=== PATIENT | female | born 1955 | race Caucasian/White ===

== ENCOUNTER → 2018-01-10 20:43 | Outpatient (CLI) | payer BC, SELFPAY ==
[2018-01-10 20:49] LABS: Absolute Lymphocyte Count 1.85 X10^3/ul (0.83-4.51); Absolute Neutrophil Count 4.1 X10^3/uL (2.0-7.7); Basophil# 0.04 X10^3/uL; Basophil% 0.6 % (0-1); Eosinophil# 0.04 X10^3/uL; Eosinophils% 0.6 % (0-5); Hematocrit 39.1 % (37-47); Hemoglobin 13.8 g/dl (12.0-15.0); Lymphocyte # 1.85 X10^3/ul (4.0); Mean Corp Hgb Conc 35.3 g/gl (32-36); Mean Corpuscular Hgb 34.2 pg (27.0-32.0); Mean Corpuscular Volume 96.8 fL (81-99); Mean Platelet Vol. 8.9 fl (6.2-12.0); Monocyte# 0.82 X10^3/uL; Neutrophil # 4.08 X10^3/uL (2.7-7.7); Neutrophil % 59.7 % (47-70); Platelet Count 209 K/mm3 (150-450); RBC Distribution Width CV 12.3 % (11.6-14.6); RBC Distribution Width SD 43.3 fl (35.1-43.9); Red Blood Count 4.04 M/mm3 (4.2-5.4); White Blood Count 6.8 K/mm3 (4.4-11.0)
[2018-01-10 20:50] LABS: POSITIVE COUNT NO; POSITIVE DIFFERENTIAL NO; POSITIVE MORPHOLOGY NO
[2018-01-10 21:02] LABS: ALB/GLOB Ratio 0.8 RATIO (0.9-2.4); AST(SGOT) 37 U/L (15-37); Alanine Aminotransfer ALT/SGPT 26 U/L (13-56); Albumin, Serum 3.4 g/dL (3.2-5.0); Alkaline Phosphatase 117 U/L (45-117); Anion Gap 11 (5-15); BUN 6 mg/dL (7-18); BUN/Creat Ratio 8.2 RATIO (10-20); Calcium,Total 8.9 mg/dL (8.5-10.1); Chloride 94 mmol/L (98-107); Cholesterol 166 mg/dL (200); Creatinine, Serum 0.74 mg/dL (0.55-1.02); EST Glomerular Filtration Rate 85 mL/min (>60); Est Glom Filt Rate - Afr Amer 102 mL/min (>60); Globulin 4.2 g/dL (2.2-4.2); Glucose 93 mg/dL (74-106); High Density Lipoprotein 73 mg/dL; Potassium 3.3 mmol/L (3.5-5.1); Protein, Total 7.6 g/dL (6.4-8.2); Sodium Level 133 mmol/L (136-145); Triglycerides 148 mg/dL; Very Low Density Lipoprotein 30 mg/dL (5-40)
== END ==
PROVIDERS: Visit Provider Nurse Practitioner
DX: I10 Essential (primary) hypertension (principal); E78.5 Hyperlipidemia, unspecified
CPT/HCPCS: 80053; 80061; 85025

== ENCOUNTER → 2019-01-08 | Outpatient (CLI) | payer BC, SELFPAY ==
[2019-01-08 15:32] VITALS: BMI 21.2
[2019-01-08 21:43] LABS: Absolute Neutrophil Count 3.7 X10^3/uL (2.0-7.7); Basophil# 0.07 X10^3/uL; Basophil% 1.1 % (0-1); Eosinophil# 0.04 X10^3/uL; Eosinophils% 0.6 % (0-5); Hematocrit 42.4 % (37-47); Lymphocyte % 31.8 % (19-41); Mean Corp Hgb Conc 35.4 g/dL (32-36); Mean Corpuscular Hgb 34.8 pg (27.0-32.0); Mean Corpuscular Volume 98.4 fL (81-99); Mean Platelet Vol. 8.9 fl (6.2-12.0); Monocyte# 0.51 X10^3/uL; Monocyte% 8.1 % (0-10); NRBC Flagged by Analyzer 0 % (0-5); Neutrophil # 3.65 X10^3/uL (2.7-7.7); Neutrophil % 58.2 % (47-70); Platelet Count 186 K/mm3 (150-450); RBC Distribution Width CV 12.3 % (11.6-14.6); RBC Distribution Width SD 44.8 fl (35.1-43.9); Red Blood Count 4.31 M/mm3 (4.2-5.4); White Blood Count 6.3 K/mm3 (4.4-11.0)
[2019-01-08 21:54] LABS: ALB/GLOB Ratio 0.8 RATIO (0.9-2.4); AST(SGOT) 25 U/L (15-37); Alanine Aminotransfer ALT/SGPT 18 U/L (13-56); Albumin, Serum 3.5 g/dL (3.2-5.0); Alkaline Phosphatase 111 U/L (45-117); Anion Gap 8 (5-15); BUN 8 mg/dL (7-18); BUN/Creat Ratio 11.9 RATIO (10-20); Calcium,Total 9.1 mg/dL (8.5-10.1); Chloride 98 mmol/L (98-107); Cholesterol 155 mg/dL (200); Creatinine, Serum 0.67 mg/dL (0.55-1.02); EST Glomerular Filtration Rate 93 mL/min (>60); Est Glom Filt Rate - Afr Amer 113 mL/min (>60); Globulin 4.2 g/dL (2.2-4.2); Glucose 79 mg/dL (74-106); High Density Lipoprotein 60 mg/dL; Potassium 3.5 mmol/L (3.5-5.1); Protein, Total 7.7 g/dL (6.4-8.2); Sodium Level 130 mmol/L (136-145); Triglycerides 145 mg/dL; Very Low Density Lipoprotein 29 mg/dL (5-40)
== END | disposition home or self-care (01) ==
PROVIDERS: Referring Provider Nurse Practitioner; Visit Provider Nurse Practitioner
DX: I10 Essential (primary) hypertension (principal); E78.2 Mixed hyperlipidemia
CPT/HCPCS: 80053; 80061; 85025

== ENCOUNTER → 2019-12-15 | Outpatient (CLI) | payer MEDICARE, SELFPAY ==
[2019-01-08 15:32] VITALS: BMI 21.2
[2019-12-15 22:45] LABS: Absolute Lymphocyte Count 0.74 X10^3/uL (0.83-4.51); Absolute Neutrophil Count 4.8 X10^3/uL (2.0-7.7); Basophil# 0.03 X10^3/uL; Basophil% 0.5 % (0-1); Eosinophil# 0.01 X10^3/uL; Eosinophils% 0.2 % (0-5); Hematocrit 37.7 % (37-47); Hemoglobin 13.8 g/dL (12.0-15.0); Lymphocyte # 0.74 X10^3/ul (4.0); Lymphocyte % 11.6 % (19-41); Mean Corp Hgb Conc 36.6 g/dL (32-36); Mean Corpuscular Hgb 34.7 pg (27.0-32.0); Mean Corpuscular Volume 94.7 fL (81-99); Mean Platelet Vol. 9.6 fl (6.2-12.0); Monocyte# 0.75 X10^3/uL; Monocyte% 11.8 % (0-10); NRBC Flagged by Analyzer 0 % (0-5); Neutrophil # 4.82 X10^3/uL (2.7-7.7); Neutrophil % 75.7 % (47-70); Platelet Count 189 K/mm3 (150-450); RBC Distribution Width CV 11.8 % (11.6-14.6); RBC Distribution Width SD 40.9 fl (35.1-43.9); Red Blood Count 3.98 M/mm3 (4.2-5.4); White Blood Count 6.4 K/mm3 (4.4-11.0)
[2019-12-15 22:57] LABS: ALB/GLOB Ratio 0.9 RATIO (0.9-2.4); AST(SGOT) 37 U/L (15-37); Alanine Aminotransfer ALT/SGPT 22 U/L (13-56); Albumin, Serum 3.3 g/dL (3.2-5.0); Alkaline Phosphatase 82 U/L (45-117); Anion Gap 11 (5-15); BUN 27 mg/dL (7-18); BUN/Creat Ratio 15.2 RATIO (10-20); Calcium,Total 8.3 mg/dL (8.5-10.1); Chloride 78 mmol/L (98-107); Cholesterol 123 mg/dL (200); Creatinine, Serum 1.78 mg/dL (0.55-1.02); EST Glomerular Filtration Rate 30 mL/min (>60); Est Glom Filt Rate - Afr Amer 37 mL/min (>60); Globulin 3.7 g/dL (2.2-4.2); Glucose 121 mg/dL (74-106); High Density Lipoprotein 54 mg/dL; Potassium 2.6 mmol/L (3.5-5.1); Sodium Level 114 mmol/L (136-145); Triglycerides 160 mg/dL; Very Low Density Lipoprotein 32 mg/dL (5-40)
== END | disposition home or self-care (01) ==
PROVIDERS: Visit Provider Nurse Practitioner
DX: I10 Essential (primary) hypertension (principal); E78.5 Hyperlipidemia, unspecified
CPT/HCPCS: 80053; 80061; 85025

== ENCOUNTER 2019-12-16 13:08 | Inpatient (IN) | payer MEDICARE, SELFPAY ==
[2019-12-15 16:02] VITALS: BMI 20.2
[2019-12-16] VITALS (11 sets, daily range): BP systolic 126–180; BP diastolic 40–73; PULSE 58–72; RESP 15–19; TEMP 36.6–36.9; O2SAT 94–100; BMI 20.2
--- NOTE | 2019-12-16 13:28 | CT_ITS ---
STUDY: CT BRAIN WITHOUT CONTRAST REASON FOR EXAM: Female, 64 years old. PT STATED FALL RADIATION DOSAGE (If Supplied By Facility): CTDIvol = ( 44.99 ) mGy, DLP = ( 762.36 ) mGycm TECHNIQUE: Transaxial CT imaging of the brain was performed without administration of intravenous contrast material. Individualized dose optimization techniques were used for this CT. COMPARISON: No relevant priors. FINDINGS: Normal soft tissue structures. Normal calvarium. There is mild cerebral atrophy with widening of the extra-axial spaces and ventricular dilatation. Normal white matter tracts of the cerebral hemispheres. Old lacunar infarct in the left basal ganglia. Normal brainstem. There is mild cerebellar atrophy. There is no intracranial hemorrhage. There are no findings of an acute ischemic infarction. Atherosclerotic calcification of the cavernous portions of the internal carotid arteries and vertebral arteries. Normal visualized paranasal sinuses. CT/Brain/Head without Contrast IMPRESSION: Chronic involutional changes of the brain. Old small lacunar infarct in the left basal ganglia. Electronically Signed: Devendra Foley, at 14:25 EDT , Service support ,
[2019-12-16 13:44] LABS: Absolute Neutrophil Count 4.5 X10^3/uL (2.0-7.7); Basophil# 0.01 X10^3/uL; Basophil% 0.2 % (0-1); Lymphocyte % 8.8 % (19-41); Mean Corpuscular Volume 92.8 fL (81-99); Mean Platelet Vol. 9.4 fl (6.2-12.0); Monocyte# 0.66 X10^3/uL; Monocyte% 11.6 % (0-10); NRBC Flagged by Analyzer 0 % (0-5); Neutrophil # 4.47 X10^3/uL (2.7-7.7); Neutrophil % 78.9 % (47-70); POSITIVE COUNT YES; POSITIVE DIFFERENTIAL YES; Platelet Count 202 K/mm3 (150-450); RBC Distribution Width CV 11.6 % (11.6-14.6); RBC Distribution Width SD 39.5 fl (35.1-43.9); Red Blood Count 4.05 M/mm3 (4.2-5.4); White Blood Count 5.7 K/mm3 (4.4-11.0)
[2019-12-16 13:53] LABS: Anion Gap 11 (5-15); BUN 26 mg/dL (7-18); BUN/Creat Ratio 21.7 RATIO (10-20); Calcium,Total 8.5 mg/dL (8.5-10.1); Chloride 82 mmol/L (98-107); EST Glomerular Filtration Rate 48 mL/min (>60); Est Glom Filt Rate - Afr Amer 58 mL/min (>60); Estimated Creatinine Clearance 33.57 ml/min; Glucose 104 mg/dL (74-106); Magnesium 1.8 mg/dL (1.6-2.6); Potassium 2.7 mmol/L (3.5-5.1); Sodium Level 117 mmol/L (136-145)
--- NOTE | 2019-12-16 13:53 | EKG12_ITS ---
Test Reason : ABNORMAL LABS Blood Pressure : / mmHG Vent. Rate : 058 BPM Atrial Rate : 058 BPM P-R Int : 116 ms QRS Dur : 088 ms QT Int : 504 ms P-R-T Axes : 028 053 192 degrees QTc Int : 494 ms Sinus bradycardia Left ventricular hypertrophy with repolarization abnormality Prolonged QT Abnormal ECG Confirmed by ACACIA MOY, KAYLIN ([id number]), television news video editor SANTOS ROBERTO ([id number]) on 12/18/2019 11:27:37 A M Referred By: Confirmed By:KAYLEY ROGER MD
--- NOTE | 2019-12-16 14:05 | ED.VISSUMM ---
- ER Visit Summary Date of Service: 12/16/19 Chief Complaint: Abnormal labs History of Present Illness: The patient is a 64 F presenting due to abnormal labs. Patient saw her primary care physician yesterday for sciatica. She had an injection at that time which she states has improved her pain. She had outpatient blood work ordered. She was called today to advise her to come to the emergency department due to abnormal sodium and potassium levels. She states over the past several days she has felt lightheaded and weak. She has fallen 4-5 times over the past several days. She denies losing consciousness or hitting her head. She states she has lost 10 pounds in the past year. She denies urinary or bowel incontinence. She states she has not been feeling well and has been nauseated with vomiting. She has had a decreased appetite. She denies abdominal pain. Denies chest pain or shortness of breath. Denies fever or other complaints. She has a history of alcohol use and tobacco use. Physical Examination: Vitals are stable. Patient is afebrile. Alert no acute distress. HEENT exam dry mucous membranes Neck is supple. Lungs are clear and equal bilaterally. Heart is regular rate and rhythm. Abdomen is soft nontender nondistended. Extremities are unremarkable. Skin is warm and dry. No focal neurologic deficit. Remainder of exam is unremarkable. Emergency Department Course and Treatment: Patient given IV fluids. EKG is sinus rate of 58 with LVH. CBC unremarkable. Chemistry panel shows sodium 117, potassium 2.7, BUN 26, creatinine 1.2. Magnesium 1.8. She was given potassium IV replacement. Phosphorus 3.0. Alcohol negative. CT head shows chronic involutional changes of the brain. Old small lacunar infarct in the left basal ganglia. Chest xray shows hyperinflation. Minimal increased markings at the left lung base suggestive of linear scarring. Discussed with hospitalist for admission. Disposition: Admission Impression: Hyponatremia, hypokalemia This note was generated with [employer] dictation software. It may contain incorrect words, spelling, and punctuation that were not noted in review of the chart prior to signing ED Disposition - Plan for ED Patient: Referrals: [facility] Doctor,Out of [Primary Care Provider] -
[2019-12-16 14:09] LABS: Alcohol, Blood (Medical)-Serum < 3.0 mg/dL
--- NOTE | 2019-12-16 14:09 | NURSING ---
NO OLD EKGS
--- NOTE | 2019-12-16 14:15 | RAD_ITS ---
STUDY: X-RAY CHEST REASON FOR EXAM: Female, 64 years old. Shortness of breath TECHNIQUE: Single AP portable view of the chest. COMPARISON: None. FINDINGS: EKG electrodes are seen. Hyperinflation. Minimal increased linear markings at the left lung base suggestive of linear scarring. There is no demonstrated pleural abnormality. Normal size heart. Normal mediastinum and darrick. Normal visualized pulmonary arteries. There is atherosclerotic calcification of the aortic arch with tortuosity. Normal visualized thoracic spine. Normal visualized ribs, clavicles, and shoulders. There is no demonstrated abnormality of the visualized soft tissue structures of the upper abdomen. RAD/Chest 1 View (Portable) IMPRESSION: Hyperinflation. Minimal increased markings at the left lung base suggestive of linear scarring. Electronically Signed: Devendra Foley, at 14:27 EDT , Service support ,
[2019-12-16 14:24] LABS: Differential Indicated SCAN CRITERIA MET
[2019-12-16 14:26] LABS: Hematocrit 38.5 % (37-47); Hemoglobin 14.5 g/dL (12.0-15.0); Mean Corpuscular Hgb 32.2 pg (27.0-32.0)
[2019-12-16 14:27] LABS: Mean Corp Hgb Conc 37.7 g/dL (32-36)
[2019-12-16] MEDS: 0.9% Normal Saline 1,000 ML 999 ML IV (14:38)
--- NOTE | 2019-12-16 14:45 | HP.PCM_ITS ---
Problem List (1) Hyponatremia Status: Acute (2) Hypokalemia Status: Acute (3) HAMZAH (acute kidney injury) Status: Acute (4) Tobacco use Status: Chronic (5) Alcohol abuse Status: Chronic (6) Severe protein-calorie malnutrition Status: Chronic (7) Right-sided low back pain with sciatica Status: Resolved Qualifiers: Chronicity: acute Sciatica laterality: sciatica of right side Qualified Code(s): M54.41 - Lumbago with sciatica, right side Comment: Recent 12/15/19 steroid injection and oral regimen, improved. (8) Hyperlipemia Status: Acute Qualifiers: Hyperlipidemia type: moderate mixed hyperlipidemia not requiring statin therapy Qualified Code(s): E78.2 - Mixed hyperlipidemia (9) Hypertension Status: Chronic Qualifiers: Hypertension type: essential hypertension Qualified Code(s): I10 - Essential (primary) hypertension History of Present Illness Date of Admission: 12/16/19 Chief Complaint: Abnormal labs with recent lightheadedness, weakness, frequent falls without LOC or trauma, decreased appetite, malaise with nausea and emesis. The patient is a 64 y/o F w/ PMHx: EtOH Abuse (6-8 beers daily) without history of withdrawal, Tobacco use, Cannabis use, HTN, HLD, Back pain with sciatica s/p recent PCP injection day prior who presents to the [facility] ED on secondary to history of 1 week of intermittent lightheadedness, weakness with episode of 4-5 falls over the last several days with no specific loss of consciousness or trauma per her report with ongoing decreased appetite with poor oral intake and nausea and occasional emesis prompting her physician to obtain labs which were considerably abnormal with sodium noted 114 in addition to low potassium with concurrent history of ongoing issues with right radicular pain with recent PCP injection on 12/15/2019 with usage of Flexeril 3 times daily as well as steroid regimen only initiated on 12/15/2019. Patient notes that her right sciatica has improved following these interventions. Work-up in the ED included T 97.8, heart rate 66, BP 126/73, respiratory rate 16, on a percent on room air, CBC with WC 5.7, hemoglobin 14.5, platelet 202 with no significant left shift but noted lymphopenia, BMP with sodium 117, potassium 2.7, chloride 82, BUN/creatinine 26/1.20, phosphorus 3, magnesium 1.8, ethyl alcohol less than 3, chest x-ray with chronic changes with minimal increase of markings at the left lung base suggestive of linear scarring, CT of the brain with chronic involutional changes with an old small lacunar infarct in left basal ganglia evident otherwise no acute intracranial findings, EKG was sinus rhythm with LVH with no evidence of acute ischemia. In the ED patient administered 1L normal saline and initiated on 40 mg IV potassium supplementation. Past Medical History Past Medical History (Chronic Problems): Chronic Problems (Last Updated 12/16/19 @ 09:13 by Radha Zepeda NP-C) Tobacco use (Chronic) Alcohol abuse (Chronic) Severe protein-calorie malnutrition (Chronic) Hypertension (Chronic) Medical History: Medical History (Last Updated 12/16/19 @ 09:13 by Radha Zepeda NP-C) Hyperlipidemia E78.5 Hypokalemia E87.6 Hyponatremia E87.1 Menopausal symptoms N95.1 R carotid 100% block for 20 years Right-sided low back pain with sciatica M54.41 Hypertension I10 Allergies No Known Allergies Allergy (Verified 12/16/19 13:10) Home Medications: Ambulatory Orders Medication Instructions Recorded cyclobenzaprine 5 mg tablet 5 mg PO TID PRN #30 tab 12/15/19 Amlodipine Besylate 2.5 mg PO DAILY 12/16/19 Aspirin [Aspirin EC] 81 mg PO DAILY@199912/16/19 Atorvastatin Calcium [Lipitor] 20 mg PO QHS 12/16/19 Enalapril Maleate 20 mg PO DAILY 12/16/19 Metoprolol Succinate 50 mg PO DAILY 12/16/19 Prednisone 40 mg PO DAILY 12/16/19 Surgical History: - - Patient denies any prior surgical history. Psychiatric History: No pertinent psych hx SONOGRAPHY TECHNOLOGIST History: No pertinent SONOGRAPHY TECHNOLOGIST history Lives: Alone Smoking Status: Current every day smoker - Patient with ongoing 1 pack/day cigarette tobacco usage since use. Tobacco Use: Cigarettes Alcohol: Heavy - Patient with at least 6-8 beers daily, 12 ounces in size Drugs: Marijuana - *Family History Maternal Family History: Family History (Last Reviewed 01/10/18 @ 15:36 by Serina Ngo) Father Heart disease Diabetes Brother Diabetes Uncle Cancer History Items: Heart Disease Paternal Family History: Family History (Last Reviewed 01/10/18 @ 15:36 by Serina Ngo) Father Heart disease Diabetes Brother Diabetes Uncle Cancer History Items: Diabetes, Heart Disease Review of Systems Constitutional: Reports: Anorexia, Malaise, Weakness, Weight Change, Fatigue. Denies: Chills, Fever HEENT: Denies: Head Aches, Sinus Congestion, Sinus Drainage Cardiovascular: Reports: Light Headedness, - - Frequent falls.. Denies: Chest Pain, Palpitations Respiratory: Denies: Cough, Shortness of Breath, Shortness of breath at rest, Shortness of breath upon exertion, Sputum production Gastrointestinal: Reports: Nausea, Vomiting. Denies: Abdominal Pain, Diarrhea Genitourinary: Denies: Dysuria Musculoskeletal: Reports: Leg Pain. Denies: Joint Pain, Joint Tenderness Skin: Denies: Rash, Wounds Neurological: Reports: - - RLE sciatic pain.. Denies: Focal weakness, Numbness, Tingling Psychiatric: Denies: Anxiety, Depression, Homicidal Ideations, Suicidal Ideations Hematologic/ Lymphatic: Reports: Easy Bruising, Easy Bleeding VTE Information - Inpt Only VTE Present on Admission: No VTE Mechan Device Prophylaxis: SCD's VTE Pharm Prophylaxis ordered?: Yes Patient Problems: Active and Suspected Problems (Last Updated 12/16/19 @ 09:13 by Radha Zepeda NP-C) Hyponatremia (Acute) Hypokalemia (Acute) HAMZAH (acute kidney injury) (Acute) Subjective: Patient seated upright in ED bed, mildly fatigued appearance otherwise no acute distress, denies any current nausea and notes that sciatic pain is currently improved on current regimen. Objective: Physical Examination: General: awake, alert, oriented x 3 and cooperative, seated upright in the ED bed in no apparent distress, fatigued appearance however. Skin: normal color, turgor, no icterus, cyanosis. HEENT: AT/NC, EOMI, PERRLA, dry MM, no carotid bruits or JVD noted. Lungs: Diminished breath sounds, greater bases, moderate effort, occasional end expiratory wheeze, no rales or rhonchi. Heart: Mildly bradycardic with regular rhythm; no gallop, rub audible. Abdomen: soft, despite BMI 20 cachectic appearing habitus, NTTP including epigastric region, ND, normal BS, + HM. Extremities: no cyanosis, clubbing, or edema. Neurological: patient awake, alert, oriented x 3; cognitive function intact; pupils equally reactive to light and accomodation; cranial nerves II-XII grossly normal, moving all 4 extremities, no focal deficits, strength moderately to severely globally decreased secondary to acute presentation, functionality decreased with activity attempts. Psychiatric: affect appears fatigued otherwise normal, no acute evidence of depressive or anxiety feelings. - Physical Exam Vitals/I&O's: Vital Signs Temp Pulse Resp BP Pulse Ox 97.8 F 58 L 19 H 126/73 H 97 12/16/19 13:08 12/16/19 13:47 12/16/19 13:47 12/16/19 13:08 12/16/19 13:47 Oxygen Delivery Method Room Air Weight: 104 lb Body Mass Index (BMI) 20.2 Laboratory Results 12/16/19 13:27: WBC 5.7, RBC 4.05 L, Hgb 14.5, Hct 38.5, MCV 92.8, MCH 32.2 H, MCHC 37.7 H, RDW Std Deviation 39.5, RDW Coeff of Brooklynn 11.6, Plt Count 202, MPV 9.4, Immature Gran % (Auto) 0.500, Neut % (Auto) 78.9 H, Lymph % (Auto) 8.8 L, Isabella % (Auto) 11.6 H, Eos % (Auto) 0.0, Baso % (Auto) 0.2, Absolute Neuts (auto) 4.5, Absolute Lymphs (auto) 0.50 L, Nucleated RBC % 0 12/16/19 13:27: Sodium 117 L*, Potassium 2.7 L*, Chloride 82 L, Carbon Dioxide 24.0, Anion Gap 11, BUN 26 H, Creatinine 1.20 H, Estim Creat Clear Calc 33.57, Est GFR (MDRD) Af Amer 58 L, Est GFR (MDRD) Non-Af 48 L, BUN/Creatinine Ratio 21.7 H, Glucose 104, Calcium 8.5, Magnesium 1.8 12/16/19 13:27: Phosphorus 3.0 12/16/19 13:27: Ethyl Alcohol < 3.0 Current Medications Sodium Chloride () 1,000 mls @ 999 mls/hr IV .Q1H1M ONE Stop: 12/16/19 14:57 Last Admin: 12/16/19 14:38 Dose: 999 mls/hr Documented by: Potassium Chloride () 10 meq in 100 mls @ 100 mls/hr IV BOLUS Q1H LONG Stop: 12/16/19 18:14 Assessment/Plan All Active Problems (Last Updated 12/16/19 @ 09:13 by Radha Zepeda NP-C) Hyponatremia (Acute) Hypokalemia (Acute) HAMZAH (acute kidney injury) (Acute) Right-sided low back pain with sciatica (Resolved) Hyperlipemia (Acute) The patient is a 64 y/o F w/ PMHx: EtOH Abuse (6-8 beers daily) without history of withdrawal, Tobacco use, Cannabis use, HTN, HLD, Back pain with sciatica s/p recent PCP injection day prior who presents to the [facility] ED on secondary to history of 1 week of intermittent lightheadedness, weakness with episode of 4-5 falls over the last several days with no specific loss of consciousness or trauma per her report with ongoing decreased appetite with poor oral intake and nausea and occasional emesis prompting her physician to obtain labs which were considerably abnormal with sodium noted 114. 1. Acute on chronic hyponatremia: Admission sodium 117, 12/14/2113, baseline appears 130s and potentially lower likely secondary to ongoing chronic alcohol abuse coupled with currently malaise, poor oral intake and GI losses with nausea and emesis, will judiciously hydrate, closely monitor on PCU, trend BMP serially to assure elevation appropriate, obtain TSH, magnesium 1.8 of note, will obtain urine Osm, UFeNa to further assess, CXR not marked appearing but given tobacco use history and presentation pending response and further work-up may necessitate consideration CT chest. Cannabis usage may also be associated with patient's GI complaints. 2. Right lower extremity sciatic pain, acute on chronic: Recent injection per primary care physician, will continue steroid burst, holding Flexeril for avoidance of sedation given recent fall history, per discussions will add very low-dose gabapentin twice daily especially given renal function and hold for sedation, defer any NSAIDs given HAMZAH but may consider following improvement. 3. Acute kidney injury: Secondary to GI losses coupled with poor oral intake. Admission BUN/Cr 1.20, 12/15/2019 creatinine had been up to 1.78 at that time, prior baseline creatinine noted to be 0.6. Will hydrate as noted judiciously, hold nephrotoxic medications and repeat chemistry in AM. If no improvement would plan FeNa assessment. 4. Hypokalemia: Admission K+ 2.7, ED supplementation given, will repeat level this evening, magnesium 1.8 per ED, distally plan repeat level in AM. 5. EtOH Abuse: Patient notes routine consumption of 6-8 beers per day. Will maintain on CIWA protocol, MVI, thiamine and folic acid. Patient notes intention of continued EtOH usage but understands that this is considered alcohol abuse. Case management consulted for substance abuse counseling. Magnesium and phosphorus obtained per ED, IV magnesium will be supplemented to assist with potassium improvement. 6. Hypertension: Continue home regimen including Norvasc, metoprolol with hold parameters, holding JENNA inhibitor given HAMZAH, PRN hydralazine. 7. Hyperlipidemia: Continue home statin regimen. 8. Tobacco Abuse: Encouraged cessation, inpatient consultation per RT, NR if desired. 9. Severe protein calorie malnutrition: Despite BMI 20 patient with significant evident cachexia, muscle and fat loss, likely associated with chronic alcohol abuse coupled with recent GI losses, 10 pound weight loss, nutrition consulted. 10. DVT prophylaxis: SCDs, renally dosed Lovenox. 11. CODE status: Patient does not have healthcare power of clinical product specialist nor living will in place. Discussed what setting these items up and tells and noted that she was interested she could discuss these with case management/social work during her admission. Discussed CODE status at length including difference between FULL code, DNR-CCA and DNR-CC status. Following discussions about the differences in these status, requested Full Code. Advanced Care Planning Face to Face Time: 16 minutes. Inpatient E&M: 64733 Init Hosp L3 Procedures: 98207 Advncd Care Plan 30 Min
[2019-12-16] MEDS: Potassium Chloride 10mEq/100mL 10 MEQ/100 ML IV.SOLN. 100 MEQ IV BOLUS ×4 (14:56→18:23)
[2019-12-16] MEDS: 0.9% Normal Saline 1,000 ML 125 ML IV (16:51)
[2019-12-16 17:03] LABS: AST(SGOT) 36 U/L (15-37); Alanine Aminotransfer ALT/SGPT 24 U/L (13-56); Albumin, Serum 3.1 g/dL (3.2-5.0); Alkaline Phosphatase 78 U/L (45-117); Anion Gap 10 (5-15); BUN 25 mg/dL (7-18); Bilirubin, Direct 0.31 mg/dL (0.00-0.30); Calcium,Total 8.2 mg/dL (8.5-10.1); Chloride 87 mmol/L (98-107); Creatinine, Serum 0.96 mg/dL (0.55-1.02); EST Glomerular Filtration Rate 62 mL/min (>60); Est Glom Filt Rate - Afr Amer 75 mL/min (>60); Estimated Creatinine Clearance 41.97 ml/min; Globulin 3.8 g/dL (2.2-4.2); Glucose 90 mg/dL (74-106); Lipase 230 U/L (73-393); Potassium 3.2 mmol/L (3.5-5.1); Protein, Total 6.9 g/dL (6.4-8.2); Sodium Level 121 mmol/L (136-145); Thyroid Stim Hormone (TSH) 0.33 uIU/mL (0.358-3.74)
[2019-12-16 17:12] LABS: Urine Sodium 12 mmol/L (Not Establ.)
[2019-12-16 17:30] LABS: Amphetamine Urine VISTA NEGATIVE (<1000 ng/mL); Barbiturate Urine VISTA NEGATIVE (< 200 ng/mL); Benzodiazepine Urine VISTA NEGATIVE (< 200 ng/mL); Cocaine Urine VISTA NEGATIVE (< 300 ng/mL); Ecstacy Urine VISTA NEGATIVE (< 500 ng/mL); Methadone Urine VISTA NEGATIVE (< 300 ng/mL); PCP Urine VISTA NEGATIVE (< 25 ng/mL); THC Urine VISTA NEGATIVE (< 50 ng/mL); Vista UDS pH Range 6
[2019-12-16] MEDS: Gabapentin 100 MG Capsule PO (18:30)
[2019-12-16] MEDS: Thiamine Hydrochloride 100 MG Tablet PO (18:30)
[2019-12-16] MEDS: 0.9% Saline Lock 10 ML Syringe IV (18:32)
[2019-12-16] MEDS: hydrALAZINE 20 MG/ML Vial 10 MG IV (18:32)
[2019-12-16 20:43] LABS: Anion Gap 10 (5-15); BUN 23 mg/dL (7-18); BUN/Creat Ratio 22.3 RATIO (10-20); Calcium,Total 8.1 mg/dL (8.5-10.1); Chloride 90 mmol/L (98-107); Creatinine, Serum 1.03 mg/dL (0.55-1.02); EST Glomerular Filtration Rate 57 mL/min (>60); Est Glom Filt Rate - Afr Amer 69 mL/min (>60); Estimated Creatinine Clearance 39.11 ml/min; Glucose 113 mg/dL (74-106); Potassium 3.6 mmol/L (3.5-5.1); Sodium Level 121 mmol/L (136-145)
[2019-12-16] MEDS: Famotidine 20 MG Tablet PO (22:20)
[2019-12-16] MEDS: Atorvastatin Calcium 20 MG Tablet PO (22:20)
[2019-12-17] VITALS (12 sets, daily range): BP systolic 98–194; BP diastolic 49–66; PULSE 65–79; RESP 15–18; TEMP 36.9–37.1; O2SAT 93–98
[2019-12-17] MEDS: 0.9% Normal Saline 1,000 ML 125 ML IV ×2 (00:29→08:44)
[2019-12-17 00:58] LABS: Anion Gap 6 (5-15); BUN 21 mg/dL (7-18); BUN/Creat Ratio 25.9 RATIO (10-20); Calcium,Total 8.1 mg/dL (8.5-10.1); Chloride 94 mmol/L (98-107); Creatinine, Serum 0.81 mg/dL (0.55-1.02); EST Glomerular Filtration Rate 75 mL/min (>60); Est Glom Filt Rate - Afr Amer 91 mL/min (>60); Estimated Creatinine Clearance 49.74 ml/min; Glucose 101 mg/dL (74-106); Sodium Level 124 mmol/L (136-145)
[2019-12-17 05:14] LABS: AST(SGOT) 30 U/L (15-37); Alanine Aminotransfer ALT/SGPT 22 U/L (13-56); Albumin, Serum 2.4 g/dL (3.2-5.0); Alkaline Phosphatase 62 U/L (45-117); Anion Gap 6 (5-15); BUN 19 mg/dL (7-18); BUN/Creat Ratio 23.7 RATIO (10-20); Calcium,Total 7.9 mg/dL (8.5-10.1); Chloride 96 mmol/L (98-107); EST Glomerular Filtration Rate 76 mL/min (>60); Est Glom Filt Rate - Afr Amer 92 mL/min (>60); Estimated Creatinine Clearance 50.36 ml/min; Globulin 3.3 g/dL (2.2-4.2); Glucose 105 mg/dL (74-106); Potassium 4.1 mmol/L (3.5-5.1); Protein, Total 5.7 g/dL (6.4-8.2); Sodium Level 126 mmol/L (136-145)
[2019-12-17 08:26] LABS: Absolute Lymphocyte Count 0.83 X10^3/uL (0.83-4.51); Absolute Neutrophil Count 4.4 X10^3/uL (2.0-7.7); Hematocrit 32.6 % (37-47); Hemoglobin 11.9 g/dL (12.0-15.0); Lymphocyte # 0.83 X10^3/ul (4.0); Lymphocyte % 13.3 % (19-41); Mean Corp Hgb Conc 36.5 g/dL (32-36); Mean Corpuscular Hgb 35.1 pg (27.0-32.0); Mean Corpuscular Volume 96.2 fL (81-99); Mean Platelet Vol. 9.3 fl (6.2-12.0); Monocyte# 1.03 X10^3/uL; Monocyte% 16.5 % (0-10); NRBC Flagged by Analyzer 0 % (0-5); Neutrophil # 4.36 X10^3/uL (2.7-7.7); Neutrophil % 69.7 % (47-70); Platelet Count 190 K/mm3 (150-450); RBC Distribution Width CV 11.9 % (11.6-14.6); RBC Distribution Width SD 41.3 fl (35.1-43.9); Red Blood Count 3.39 M/mm3 (4.2-5.4); White Blood Count 6.3 K/mm3 (4.4-11.0)
[2019-12-17 08:37] LABS: Anion Gap 6 (5-15); BUN 17 mg/dL (7-18); BUN/Creat Ratio 22.8 RATIO (10-20); Calcium,Total 8.1 mg/dL (8.5-10.1); Chloride 98 mmol/L (98-107); Creatinine, Serum 0.75 mg/dL (0.55-1.02); EST Glomerular Filtration Rate 83 mL/min (>60); Est Glom Filt Rate - Afr Amer 100 mL/min (>60); Estimated Creatinine Clearance 53.72 ml/min; Glucose 98 mg/dL (74-106); Potassium 3.5 mmol/L (3.5-5.1); Sodium Level 130 mmol/L (136-145)
[2019-12-17] MEDS: Gabapentin 100 MG Capsule PO ×2 (09:28→17:35)
[2019-12-17] MEDS: Multivitamins,Ther W-Minerals Tablet 1 TABLET PO (09:28)
[2019-12-17] MEDS: predniSONE 20 MG Tablet 40 MG PO (09:28)
[2019-12-17] MEDS: Aspirin 81 MG TAB.CHEW PO (09:28)
[2019-12-17] MEDS: Folic Acid 1 MG Tablet PO (09:28)
[2019-12-17] MEDS: amLODIPine 2.5 MG Tablet PO (09:29)
[2019-12-17] MEDS: Thiamine Hydrochloride 100 MG Tablet PO ×2 (09:29→17:35)
[2019-12-17] MEDS: Enoxaparin 40 MG/0.4 ML Syringe SC (09:29)
[2019-12-17] MEDS: Metoprolol(XL)Succ 50 MG Tablet PO (09:29)
--- NOTE | 2019-12-17 11:02 | CASEMGMT ---
Assessment- SW completed assessment with patient at bedside. SW also verified her address and phone number as well as her contact persons. SW also spoke with patient about advance directives and her ETOH abuse. Living situation- Patient lives alone in a 1 story home with 3-4 entry steps. PCP: Radha Zepeda SUPPLY CHAIN MANAGER with [facility] in [place], [place] Specialists: None Pharmacy: [facility] [place] DME: walker, cane, and a higher toilet seat ADL's/IADL's: Patient is independent in all activities of daily living. She drives, however lately she has not driven. She does not use any assistive devices to get around. She manages her own medications, bathes herself, cooks, cleans, and pays bills on her own. Past SNF/rehab: None Past HH: None LW: None. Patient wanted a copy of documents to take home POA: None. Patient wanted a copy of documents to take home Plan: Patient plans on returning home at discharge and does not anticipate any discharge needs. PABLITO asked if she would like SW to explain Healthcare Power of [place] Representative and a Healthcare Living Will and she declined. She stated she would just like to take them home. SW gave her copies of the documents and explained that she needs a notary to watch her sign or 2 non family witnesses that are also not named in the documents. SW asked patient about her alcohol use. She said she drinks 5-6 beers a day. She said she does not feel like this is too much. SW told her it is more than what is recommended for a female. She declined any resources to help her cut back. Nusrat DESAI DEPLOYMENT TECHNICIAN
--- NOTE | 2019-12-17 14:08 | PCM.PN.HOSP ---
Patient Problems: Active and Suspected Problems (Last Updated 12/16/19 @ 09:13 by Radha Zepeda NP-C) Hyponatremia (Acute) Hypokalemia (Acute) HAMZAH (acute kidney injury) (Acute) Subjective: Pt states that she is feeling much better. No Nausea and is asking for reg diet. States that it was about 5 days that she was not eating or drinking well 2/2 pain in her leg and this is better too. Vitals/I&O's: Vital Signs Temp Pulse Resp BP Pulse Ox 98.8 F 78 18 98/62 98 12/17/19 09:30 12/17/19 09:30 12/17/19 09:30 12/17/19 11:51 12/17/19 09:30 Oxygen Delivery Method Room Air Weight: 46.8 kg Body Mass Index (BMI) 20.0 Intake and Output for Last 24 Hours 12/15/19 12/16/19 12/17/19 23:59 23:59 23:59 Intake Total 1744 / 1744 3999.17 / 3999.17 Balance 1744 / 1744 3999.17 / 3999.17 General: Alert, Oriented x3, Cooperative, No apparent distress, Well developed, Well nourished, - - Thin, CF, appears older than stated age HEENT: Atraumatic, PERRLA, EOMI, Normocephalic, EAC Clear Oral: Moist Mucosa, No Gingival or Mucosal Lesions/ Ulcerations, - - poor dentition, mallampati 2 Neck: Supple, No JVD, No Nodes, No Nuchal Rigidity, Trachea Midline, Thyroid Normal Size and Texture Lungs: Clear to auscultation, No rhonchi, No wheeze, No rales, Diminished - diffusely Cardiovascular: Regular rate, Regular Rhythm, Normal S1, Normal S2, No murmurs, No Ectopic Activity, No rub noted, No Gallop Abdomen: Bowel Sounds Present, Soft, Non Tender, Non-Distended, No Hepato-splenomegaly, No hernias noted Extremities: No clubbing, No cyanosis, No edema, Capillary Refill Less than 3 Seconds, Peripheral Pulses Normal Skin: No rashes, No breakdown Musculoskeletal: No Tenderness to Palpation of Joints or Extremities, No Muscle Wasting Lymphatic: No Cervical, Supraclavicular, or Inguinal Adenopathy Neurological: Cranial nerves II-XII grossly intact, Neuro grossly intact, Muscle tone normal, Coordination normal Psych/Mental Status: Normal Affect, Appropriate, Alert and oriented to time, place, person, mood and affect Laboratory Results 12/16/19 13:27: WBC 5.7, RBC 4.05 L, Hgb 14.5, Hct 38.5, MCV 92.8, MCH 32.2 H, MCHC 37.7 H, RDW Std Deviation 39.5, RDW Coeff of Brooklynn 11.6, Plt Count 202, MPV 9.4, Immature Gran % (Auto) 0.500, Neut % (Auto) 78.9 H, Lymph % (Auto) 8.8 L, Stearns % (Auto) 11.6 H, Eos % (Auto) 0.0, Baso % (Auto) 0.2, Absolute Neuts (auto) 4.5, Absolute Lymphs (auto) 0.50 L, Nucleated RBC % 0 12/16/19 13:27: Phosphorus 3.0 12/16/19 13:27: Ethyl Alcohol < 3.0 12/16/19 16:25: Sodium 121 L, Potassium 3.2 L, Chloride 87 L, Carbon Dioxide 24.0, Anion Gap 10, BUN 25 H, Creatinine 0.96, Estim Creat Clear Calc 41.97, Est GFR (MDRD) Af Amer 75, Est GFR (MDRD) Non-Af 62, BUN/Creatinine Ratio 26.0 H, Glucose 90, Calcium 8.2 L, Total Bilirubin 0.70, Direct Bilirubin 0.31 H, AST 36, ALT 24, Alkaline Phosphatase 78, Total Protein 6.9, Albumin 3.1 L, Globulin 3.8, Lipase 230, TSH 0.33 L, Free T4 1.10 12/16/19 16:33: Urine Opiates Screen NEGATIVE, Urine Methadone Screen NEGATIVE, Ur Barbiturates Screen NEGATIVE, Ur Phencyclidine Scrn NEGATIVE, Ur Amphetamines Screen NEGATIVE, U Methamphetamin-MDMA NEGATIVE, U Benzodiazepines Scrn NEGATIVE, Urine Cocaine Screen NEGATIVE, U Cannabinoids Screen NEGATIVE, Ur Drug Screen Comment 12/16/19 16:33: Urine Osmolality Cancelled 12/16/19 16:33: Urine Creatinine 24.50 12/16/19 16:33: Ur Random Sodium 12 12/16/19 16:33: Miscellaneous Test Pending 12/16/19 20:10: Sodium 121 L, Potassium 3.6, Chloride 90 L, Carbon Dioxide 21.0, Anion Gap 10, BUN 23 H, Creatinine 1.03 H, Estim Creat Clear Calc 39.11, Est GFR (MDRD) Af Amer 69, Est GFR (MDRD) Non-Af 57 L, BUN/Creatinine Ratio 22.3 H, Glucose 113 H, Calcium 8.1 L 12/17/19 00:20: Sodium 124 L, Potassium 4.0, Chloride 94 L, Carbon Dioxide 24.0, Anion Gap 6, BUN 21 H, Creatinine 0.81, Estim Creat Clear Calc 49.74, Est GFR (MDRD) Af Amer 91, Est GFR (MDRD) Non-Af 75, BUN/Creatinine Ratio 25.9 H, Glucose 101, Calcium 8.1 L 12/17/19 04:14: Sodium 126 L, Potassium 4.1, Chloride 96 L, Carbon Dioxide 24.0, Anion Gap 6, BUN 19 H, Creatinine 0.80, Estim Creat Clear Calc 50.36, Est GFR (MDRD) Af Amer 92, Est GFR (MDRD) Non-Af 76, BUN/Creatinine Ratio 23.7 H, Glucose 105, Calcium 7.9 L, Total Bilirubin 0.50, Direct Bilirubin 0.20, AST 30, ALT 22, Alkaline Phosphatase 62, Total Protein 5.7 L, Albumin 2.4 L, Globulin 3.3 12/17/19 07:55: WBC 6.3, RBC 3.39 L, Hgb 11.9 L, Hct 32.6 L, MCV 96.2, MCH 35.1 H, MCHC 36.5 H, RDW Std Deviation 41.3, RDW Coeff of Brooklynn 11.9, Plt Count 190, MPV 9.3, Immature Gran % (Auto) 0.500, Neut % (Auto) 69.7, Lymph % (Auto) 13.3 L, Stearns % (Auto) 16.5 H, Eos % (Auto) 0.0, Baso % (Auto) 0.0, Absolute Neuts (auto) 4.4, Absolute Lymphs (auto) 0.83, Nucleated RBC % 0 12/17/19 07:55: Sodium 130 L, Potassium 3.5, Chloride 98, Carbon Dioxide 26.0, Anion Gap 6, BUN 17, Creatinine 0.75, Estim Creat Clear Calc 53.72, Est GFR (MDRD) Af Amer 100, Est GFR (MDRD) Non-Af 83, BUN/Creatinine Ratio 22.8 H, Glucose 98, Calcium 8.1 L Current Medications Acetaminophen (Tylenol) 650 mg PO Q6H PRN PRN PRN Reason: Pain Score 1-10/Temp > 100.7 F Al Hydroxide/Mg Hydroxide (Mylanta Ii) 30 ml PO Q6H PRN PRN PRN Reason: Gastric Burning Albuterol Sulfate (Ventolin Aerosols) 2.5 mg INHALATION Q2H PRN PRN PRN Reason: Dyspnea, wheezing Amlodipine Besylate (Norvasc) 2.5 mg PO DAILY [facility] Last Admin: 12/17/19 09:29 Dose: 2.5 mg Documented by: Aspirin (Aspirin, Baby) 81 mg PO DAILY@0800 [facility] Last Admin: 12/17/19 09:28 Dose: 81 mg Documented by: Atorvastatin Calcium (Lipitor) 20 mg PO QHS [facility] Last Admin: 12/16/19 22:20 Dose: 20 mg Documented by: Enoxaparin Sodium (Lovenox) 40 mg SC DAILY [facility] Last Admin: 12/17/19 09:29 Dose: 40 mg Documented by: Famotidine (Pepcid) 20 mg PO QHS [facility] Last Admin: 12/16/19 22:20 Dose: 20 mg Documented by: Folic Acid (Folic Acid) 1 mg PO DAILY@0800 [facility] Stop: 12/19/19 08:01 Last Admin: 12/17/19 09:28 Dose: 1 mg Documented by: [facility]) [facility] Last Admin: 12/17/19 09:28 Dose: 100 mg Documented by: Guaifenesin (Robitussin) 20 ml PO Q4H PRN PRN PRN Reason: COUGH Hydralazine HCl (Apresoline Iv) 10 mg IV Q4H PRN PRN PRN Reason: SBP > 160 Last Admin: 12/16/19 18:32 Dose: 10 mg Documented by: Sodium Chloride () 1,000 mls @ 125 mls/hr IV .Q8H [facility] Last Admin: 12/17/19 08:44 Dose: 125 mls/hr Documented by: Lorazepam (Ativan) 2 mg PO Q2H PRN PRN; Protocol PRN Reason: CIWA score > 8 but <15 Lorazepam (Ativan) 2 mg PO UD PRN; Protocol PRN Reason: CIWA score >/=15. Lorazepam (Ativan) 2 mg IV Q2H PRN PRN; Protocol PRN Reason: CIWA score > 8 but <15 Lorazepam (Ativan) 2 mg IV UD PRN; Protocol PRN Reason: CIWA score >/=15. Magnesium Hydroxide (Milk Of Magnesia) 30 ml PO DAILY PRN PRN PRN Reason: Constipation Melatonin (Melatonin) 3 mg PO QHS PRN PRN PRN Reason: INSOMNIA Metoprolol Succinate (Toprol Xl (Beta Gisela)) 50 mg PO DAILY [facility] Last Admin: 12/17/19 09:29 Dose: 50 mg Documented by: Morphine Sulfate () 2 mg IV Q3H PRN PRN PRN Reason: Pain Score 6-10/10 Multivitamins/Minerals (Multivitamin With Minerals (Bkc)) [facility] Last Admin: 12/17/19 09:28 Dose: 1 tablet Documented by: Nicotine (Nicoderm Cq (Pbkc)) 21 mg TRANSDERM. DAILY PRN PRN Reason: Nicotine Craving Nutritional Formula (Lactose Free) (Ensure Clear) 120 ml PO 4X/DAY [facility] Last Admin: 12/17/19 09:31 Dose: Not Given Documented by: Ondansetron HCl (Zofran) 4 mg IV Q8H PRN PRN PRN Reason: NAUSEA/VOMITING Oxycodone HCl (Oxyir) 5 mg PO Q4H PRN PRN PRN Reason: Pain Score 4-5/10 [facility] () [facility] Last Admin: 12/17/19 09:28 Dose: 40 mg Documented by: Prochlorperazine Edisylate (Compazine Iv) 5 mg IV Q4H PRN PRN PRN Reason: Breakthrough Nausea/Vomiting Psyllium Hydrophilic Mucilloid (Metamucil) 1 packet PO DAILY PRN PRN PRN Reason: Constipation Senna/Docusate Sodium (Senokot-S, Catherine-Colace) 2 tablet PO BID PRN PRN PRN Reason: Constipation Sodium Chloride () 10 - 40 ml IV UD PRN PRN Reason: SALINE FLUSH Last Admin: 12/16/19 18:32 Dose: 10 ml Documented by: Thiamine HCl (Vitamin B1) 100 mg PO BIDCM [facility] Stop: 12/19/19 08:01 Last Admin: 12/17/19 09:29 Dose: 100 mg Documented by: Throat Lozenges (Cepacol Sore Throat Lozenge) 1 lozenge MUCOUS MEM Q2H PRN PRN PRN Reason: SORE THROAT STROKE Vital Signs/Narrative: Vital Signs BP 12/17/19 11:51 98/62 Medical Necessity - Tobacco Use Smoking Status: Current every day smoker Tobacco Use: Cigarettes Assessment/Plan All Active Problems (Last Updated 12/16/19 @ 09:13 by Radha Zepeda, MARLYN-C) Hyponatremia (Acute) Hypokalemia (Acute) HAMZAH (acute kidney injury) (Acute) Right-sided low back pain with sciatica (Resolved) Hyperlipemia (Acute) Acute on Chronic Hyponatremia (Hypovolemic) -baseline Na is 130's -Na on admission was 117 and today has corrected to 130 on am lab -neurological stable -d/c IVF -repeat Na this pm at 1999 and if trending up will add some D5W so as she does not correct too quickly -urine Na was 12 and suspect pt was dry and this contributed to the acute process -BMP in am -suspect has a reset osmostat at baseline with chronic EtOH use Euthyroid Sick -TSH 0.33 but Free T4 is WNL Hypokalemia -resolved -repeat in am HAMZAH -resolved HTN/HPL -not on statin therapy at baseline -BP is up -restart ACEI -continue Amlodipine but may need to titrate up (on 2.5) -continue Metoprolol 50 mg daily R LE Radiculopathy -acute on chronic -continue steroid burst started by PCP -recent injection whch helped -hold flexeril for now -continue gabapentin Severe Malnutrition -liberal diet and supplements as needed EtOH abuse -no s/o withdrawal -recommend cessation but pt not ready to quit -CIWA -thiamine and folate Tobacco Abuse -recommend cessation DVT Prophylaxis -Lovenox Code Status -Full Inpatient E&M: 29135 [facility] Hosp L3
[2019-12-17] MEDS: Ensure Clear 120 ML Liquid PO (15:04)
[2019-12-17] MEDS: Famotidine 20 MG Tablet PO (21:08)
[2019-12-17] MEDS: Atorvastatin Calcium 20 MG Tablet PO (21:08)
[2019-12-17 21:32] LABS: Anion Gap 7 (5-15); BUN 14 mg/dL (7-18); BUN/Creat Ratio 15.1 RATIO (10-20); Calcium,Total 8.1 mg/dL (8.5-10.1); Chloride 102 mmol/L (98-107); Creatinine, Serum 0.93 mg/dL (0.55-1.02); EST Glomerular Filtration Rate 64 mL/min (>60); Est Glom Filt Rate - Afr Amer 78 mL/min (>60); Estimated Creatinine Clearance 43.32 ml/min; Glucose 149 mg/dL (74-106); Potassium 4.3 mmol/L (3.5-5.1); Sodium Level 129 mmol/L (136-145)
[2019-12-18] VITALS (7 sets, daily range): BP systolic 121–155; BP diastolic 70–73; PULSE 66–80; RESP 18–19; TEMP 36.8–36.9; O2SAT 97–100
[2019-12-18 07:23] LABS: Absolute Lymphocyte Count 0.94 X10^3/uL (0.83-4.51); Absolute Neutrophil Count 5.5 X10^3/uL (2.0-7.7); Hematocrit 30.7 % (37-47); Hemoglobin 10.8 g/dL (12.0-15.0); Lymphocyte # 0.94 X10^3/ul (4.0); Lymphocyte % 12.7 % (19-41); Mean Corp Hgb Conc 35.2 g/dL (32-36); Mean Corpuscular Hgb 34.8 pg (27.0-32.0); Mean Platelet Vol. 9.2 fl (6.2-12.0); Monocyte# 0.95 X10^3/uL; Monocyte% 12.8 % (0-10); NRBC Flagged by Analyzer 0 % (0-5); Neutrophil # 5.51 X10^3/uL (2.7-7.7); Neutrophil % 74.1 % (47-70); Platelet Count 188 K/mm3 (150-450); RBC Distribution Width CV 11.9 % (11.6-14.6); RBC Distribution Width SD 43.5 fl (35.1-43.9); White Blood Count 7.4 K/mm3 (4.4-11.0)
[2019-12-18 07:43] LABS: Anion Gap 10 (5-15); BUN 18 mg/dL (7-18); BUN/Creat Ratio 22.6 RATIO (10-20); Calcium,Total 7.9 mg/dL (8.5-10.1); Chloride 100 mmol/L (98-107); EST Glomerular Filtration Rate 77 mL/min (>60); Est Glom Filt Rate - Afr Amer 93 mL/min (>60); Estimated Creatinine Clearance 50.36 ml/min; Glucose 115 mg/dL (74-106); Potassium 3.5 mmol/L (3.5-5.1); Sodium Level 132 mmol/L (136-145)
[2019-12-18] MEDS: 0.9% Saline Lock 10 ML Syringe IV (07:58)
[2019-12-18] MEDS: predniSONE 20 MG Tablet 40 MG PO (07:59)
[2019-12-18] MEDS: Folic Acid 1 MG Tablet PO (07:59)
[2019-12-18] MEDS: Thiamine Hydrochloride 100 MG Tablet PO (07:59)
[2019-12-18] MEDS: Multivitamins,Ther W-Minerals Tablet 1 TABLET PO (07:59)
[2019-12-18] MEDS: Gabapentin 100 MG Capsule PO (07:59)
[2019-12-18] MEDS: Aspirin 81 MG TAB.CHEW PO (07:59)
--- NOTE | 2019-12-18 08:20 | DCINST_ITS ---
- Discharge Diagnoses Current Active Problems: Current Active and Chronic Problems (Last Updated 12/16/19 @ 09:13 by JASON Bangura) Hyponatremia (Acute) Hypokalemia (Acute) HAMZAH (acute kidney injury) (Acute) Tobacco use (Chronic) Alcohol abuse (Chronic) Severe protein-calorie malnutrition (Chronic) You will use the following diet at home:: No restrictions Your food should be the consistency of: Regular Discharge Activity: Return to Normal Activity, No Restrictions Additional Instructions: BMP in 1 week Allergies/Adverse Reactions: Allergies No Known Allergies Allergy (Verified 12/16/19 13:10) Medications to take at Discharge Amlodipine Besylate 2.5 mg PO DAILY 12/16/19 Aspirin [Aspirin EC] 81 mg PO DAILY@199912/16/19 Atorvastatin Calcium [Lipitor] 20 mg PO QHS 12/16/19 Enalapril Maleate 20 mg PO DAILY 12/16/19 Metoprolol Succinate 50 mg PO DAILY 12/16/19 Prednisone 40 mg PO DAILY 12/16/19 Primary Care Physician: [facility] Doctor,Out of [NON-STAFF] - Please follow up with your Primary Care Physician in: 1 week for f/u lab work and hospital follow-up Test Results: Test results from this visit will be discussed in further detail at your follow- up appointment, if applicable.
--- NOTE | 2019-12-18 08:22 | DS.PCM_ITS ---
Discharge Date and Diagnosis - Problem List Patient Problems: Active and Suspected Problems (Last Updated 12/16/19 @ 09:13 by JASON Bangura) Hyponatremia (Acute) Hypokalemia (Acute) HAMZAH (acute kidney injury) (Acute) Date of Admission: 12/16/19 Date of Discharge: 12/18/19 - Primary Discharge Diagnosis Acute Problems: Active Problems (Last Updated 12/16/19 @ 09:13 by JASON Bangura) Hyponatremia (Acute) Hypokalemia (Acute) HAMZAH (acute kidney injury) (Acute) - Secondary Discharge Diagnosis Chronic Problems: Chronic Problems (Last Updated 12/16/19 @ 09:13 by JASON Bangura) Tobacco use (Chronic) Alcohol abuse (Chronic) Severe protein-calorie malnutrition (Chronic) Hypertension (Chronic) Hospital Course and Treatment Imaging Results: STUDY: CT BRAIN WITHOUT CONTRAST REASON FOR EXAM: Female, 64 years old. PT STATED FALL RADIATION DOSAGE (If Supplied By Facility): CTDIvol = ( 44.99 ) mGy, DLP = ( 762.36 ) mGycm TECHNIQUE: Transaxial CT imaging of the brain was performed without administration of intravenous contrast material. Individualized dose optimization techniques were used for this CT. COMPARISON: No relevant priors. FINDINGS: Normal soft tissue structures. Normal calvarium. There is mild cerebral atrophy with widening of the extra-axial spaces and ventricular dilatation. Normal white matter tracts of the cerebral hemispheres. Old lacunar infarct in the left basal ganglia. Normal brainstem. There is mild cerebellar atrophy. There is no intracranial hemorrhage. There are no findings of an acute ischemic infarction. Atherosclerotic calcification of the cavernous portions of the internal carotid arteries and vertebral arteries. Normal visualized paranasal sinuses. CT/Brain/Head without Contrast IMPRESSION: Chronic involutional changes of the brain. Old small lacunar infarct in the left basal ganglia. STUDY: X-RAY CHEST REASON FOR EXAM: Female, 64 years old. Shortness of breath TECHNIQUE: Single AP portable view of the chest. COMPARISON: None. FINDINGS: EKG electrodes are seen. Hyperinflation. Minimal increased linear markings at the left lung base suggestive of linear scarring. There is no demonstrated pleural abnormality. Normal size heart. Normal mediastinum and darrick. Normal visualized pulmonary arteries. There is atherosclerotic calcification of the aortic arch with tortuosity. Normal visualized thoracic spine. Normal visualized ribs, clavicles, and shoulders. There is no demonstrated abnormality of the visualized soft tissue structures of the upper abdomen. RAD/Chest 1 View (Portable) IMPRESSION: Hyperinflation. Minimal increased markings at the left lung base suggestive of linear scarring. NONE Operations: None Procedures: EKG, - - CT head and CXR Summary of Care Provided: Ms Armendariz is a 64 y/o F with a PMH of EtOH Abuse (6-8 beers daily) without history of withdrawal, Tobacco use, Cannabis use, HTN, HLD, Back pain with sciatica s/p recent PCP injection day prior; who presented to the [facility] ED on secondary to history of 1 week of intermittent lightheadedness, weakness, and with 4-5 falls over the last several days with no specific loss of consciousness or trauma. She reported ongoing decreased appetite with poor oral intake, nausea and occasional emesis prompting her physician to obtain labs which were considerably abnormal showing a sodium noted 114 in addition to low potassium. Work-up in the ED included T 97.8, heart rate 66, BP 126/73, respiratory rate 16, on a percent on room air, CBC with WC 5.7, hemoglobin 14.5, platelet 202. BMP with sodium 117, potassium 2.7, chloride 82, BUN/creatinine 26/1.20, phosphorus 3, magnesium 1.8 and ethyl alcohol less than 3. Her chest x- ray showed chronic changes with minimal increase of markings at the left lung base suggestive of linear scarring and a CT of the brain showed chronic involutional changes with an old small lacunar infarct in left basal ganglia evident otherwise no acute intracranial findings. Her EKG was sinus rhythm with LVH and no evidence of acute ischemia. In the ED patient administered 1L normal saline and initiated on 40 mg IV potassium supplementation. She was placed on IVF and her Na corrected over time to 132 at the time of d/c. This appears to be her baseline and I suspect she has a reset osmostat with her chronic EtOH consumption. Her acute hyponatremia is felt 2/2 hypovolemic hyponatremia due to her nausea and vomiting with poor intake. Her K was replaced as well and was 3.5 on lab at d/c and she was given 40 mEq of K on the day of d/c. She was now ambulating without issues and reported that her leg is feeling much better. PO intake was good prior to d/c as well. She is to f/u with her PCP early next week and obtain a BMP. Pt voice understanding and was discharged in stable condition. Patient Problems: Active and Suspected Problems (Last Updated 12/16/19 @ 09:13 by Radha Zepeda NP-C) Hyponatremia (Acute) Hypokalemia (Acute) HAMZAH (acute kidney injury) (Acute) Subjective: Pt states that she is feeling much better today. Eating well and walking with much less pain. Anxious to go home. - Physical Exam Vitals/I&O's: Vital Signs Temp Pulse Resp BP Pulse Ox 98.5 F 66 19 H 155/70 H 97 12/18/19 03:10 12/18/19 07:00 12/18/19 03:10 12/18/19 03:10 12/18/19 07:35 Oxygen Delivery Method Room Air Weight: 48.8 kg Body Mass Index (BMI) 20.0 Intake and Output for Last 24 Hours 12/16/19 12/17/19 12/18/19 23:59 23:59 23:59 Intake Total 1743 6120.42 / 6120.42 230 / 230 Balance 174 / 174 6120.42 / 6120.42 230 / 230 General: Alert, Oriented x3, Cooperative, No apparent distress, Well developed, Well nourished, - - thin WF who appears older than stated age, sitting up in bed eating breakfast Oral: Moist Mucosa, No Gingival or Mucosal Lesions/ Ulcerations Lungs: No rhonchi, No rales, Diminished - diffusely, Wheezes - few scattered that resolve with cough Cardiovascular: Regular rate, Regular Rhythm, Normal S1, Normal S2, No murmurs, No Ectopic Activity, No rub noted, No Gallop Abdomen: Bowel Sounds Present, Soft, Non Tender, Non-Distended Extremities: No clubbing, No cyanosis, No edema, Capillary Refill Less than 3 Seconds, Peripheral Pulses Normal Skin: No rashes, No breakdown Musculoskeletal: No Tenderness to Palpation of Joints or Extremities, Arthritic Changes Neurological: Cranial nerves II-XII grossly intact, Neuro grossly intact Psych/Mental Status: Normal Affect, Appropriate, Alert and oriented to time, place, person, mood and affect Laboratory Results 12/17/19 07:55: WBC 6.3, RBC 3.39 L, Hgb 11.9 L, Hct 32.6 L, MCV 96.2, MCH 35.1 H, MCHC 36.5 H, RDW Std Deviation 41.3, RDW Coeff of Brooklynn 11.9, Plt Count 190, MPV 9.3, Immature Gran % (Auto) 0.500, Neut % (Auto) 69.7, Lymph % (Auto) 13.3 L , Maries % (Auto) 16.5 H, Eos % (Auto) 0.0, Baso % (Auto) 0.0, Absolute Neuts (auto) 4.4, Absolute Lymphs (auto) 0.83, Nucleated RBC % 0 12/17/19 07:55: Sodium 130 L, Potassium 3.5, Chloride 98, Carbon Dioxide 26.0, Anion Gap 6, BUN 17, Creatinine 0.75, Estim Creat Clear Calc 53.72, Est GFR (MDRD) Af Amer 100, Est GFR (MDRD) Non-Af 83, BUN/Creatinine Ratio 22.8 H, Glucose 98, Calcium 8.1 L 12/17/19 20:38: Sodium 129 L, Potassium 4.3, Chloride 102, Carbon Dioxide 20.0 L , Anion Gap 7, BUN 14, Creatinine 0.93, Estim Creat Clear Calc 43.32, Est GFR (MDRD) Af Amer 78, Est GFR (MDRD) Non-Af 64, BUN/Creatinine Ratio 15.1, Glucose 149 H, Calcium 8.1 L 12/18/19 06:43: WBC 7.4, RBC 3.10 L, Hgb 10.8 L, Hct 30.7 L, MCV 99.0, MCH 34.8 H, MCHC 35.2, RDW Std Deviation 43.5, RDW Coeff of Brooklynn 11.9, Plt Count 188, MPV 9.2, Immature Gran % (Auto) 0.400, Neut % (Auto) 74.1 H, Lymph % (Auto) 12.7 L, Maries % (Auto) 12.8 H, Eos % (Auto) 0.0, Baso % (Auto) 0.0, Absolute Neuts (auto) 5.5, Absolute Lymphs (auto) 0.94, Nucleated RBC % 0 12/18/19 06:43: Sodium 132 L, Potassium 3.5, Chloride 100, Carbon Dioxide 22.0, Anion Gap 10, BUN 18, Creatinine 0.80, Estim Creat Clear Calc 50.36, Est GFR (MDRD) Af Amer 93, Est GFR (MDRD) Non-Af 77, BUN/Creatinine Ratio 22.6 H, Glucose 115 H, Calcium 7.9 L Current Medications Acetaminophen (Tylenol) 650 mg PO Q6H PRN PRN PRN Reason: Pain Score 1-10/Temp > 100.7 F Al Hydroxide/Mg Hydroxide (Mylanta Ii) 30 ml PO Q6H PRN PRN PRN Reason: Gastric Burning Albuterol Sulfate (Ventolin Aerosols) 2.5 mg INHALATION Q2H PRN PRN PRN Reason: Dyspnea, wheezing Amlodipine Besylate (Norvasc) 2.5 mg PO DAILY [facility] Last Admin: 12/17/19 09:29 Dose: 2.5 mg Documented by: Aspirin (Aspirin, Baby) 81 mg PO DAILY@0800 [facility] Last Admin: 12/18/19 07:59 Dose: 81 mg Documented by: Atorvastatin Calcium (Lipitor) 20 mg PO QHS [facility] Last Admin: 12/17/19 21:08 Dose: 20 mg Documented by: Enoxaparin Sodium (Lovenox) 40 mg SC DAILY [facility] Last Admin: 12/17/19 09:29 Dose: 40 mg Documented by: Famotidine (Pepcid) 20 mg PO QHS [facility] Last Admin: 12/17/19 21:08 Dose: 20 mg Documented by: Folic Acid (Folic Acid) 1 mg PO DAILY@0800 [facility] Stop: 12/19/19 08:01 Last Admin: 12/18/19 07:59 Dose: 1 mg Documented by: [facility] Last Admin: 12/18/19 07:59 Dose: 100 mg Documented by: Guaifenesin (Robitussin) 20 ml PO Q4H PRN PRN PRN Reason: COUGH Hydralazine HCl (Apresoline Iv) 10 mg IV Q4H PRN PRN PRN Reason: SBP > 160 Last Admin: 12/16/19 18:32 Dose: 10 mg Documented by: Lisinopril (Zestril) 20 mg PO DAILY [facility] Lorazepam (Ativan) 2 mg PO Q2H PRN PRN; Protocol PRN Reason: CIWA score > 8 but <15 Lorazepam (Ativan) 2 mg PO UD PRN; Protocol PRN Reason: CIWA score >/=15. Lorazepam (Ativan) 2 mg IV Q2H PRN PRN; Protocol PRN Reason: CIWA score > 8 but <15 Lorazepam (Ativan) 2 mg IV UD PRN; Protocol PRN Reason: CIWA score >/=15. Magnesium Hydroxide (Milk Of Magnesia) 30 ml PO DAILY PRN PRN PRN Reason: Constipation Melatonin (Melatonin) 3 mg PO QHS PRN PRN PRN Reason: INSOMNIA Metoprolol Succinate (Toprol Xl (Beta Gisela)) 50 mg PO DAILY [facility] Last Admin: 12/17/19 09:29 Dose: 50 mg Documented by: Morphine Sulfate () 2 mg IV Q3H PRN PRN PRN Reason: Pain Score 6-10/10 Multivitamins/Minerals ([facility]ivitamin With Minerals (Bkc)) [facility] Last Admin: 12/18/19 07:59 Dose: 1 tablet Documented by: Nicotine (Nicoderm Cq (Pbkc)) 21 mg TRANSDERM. DAILY PRN PRN Reason: Nicotine Craving Nutritional Formula (Lactose Free) (Ensure Enlive) 120 ml PO 4X/DAY [facility] Last Admin: 12/17/19 21:07 Dose: 120 ml Documented by: Ondansetron HCl (Zofran) 4 mg IV Q8H PRN PRN PRN Reason: NAUSEA/VOMITING Oxycodone HCl (Oxyir) 5 mg PO Q4H PRN PRN PRN Reason: Pain Score 4-5/10 [facility] () [facility] Last Admin: 12/18/19 07:59 Dose: 40 mg Documented by: Prochlorperazine Edisylate (Compazine Iv) 5 mg IV Q4H PRN PRN PRN Reason: Breakthrough Nausea/Vomiting Psyllium Hydrophilic Mucilloid (Metamucil) 1 packet PO DAILY PRN PRN PRN Reason: Constipation Senna/Docusate Sodium (Senokot-S, Catherine-Colace) 2 tablet PO BID PRN PRN PRN Reason: Constipation Sodium Chloride () 10 - 40 ml IV UD PRN PRN Reason: SALINE FLUSH Last Admin: 12/18/19 07:58 Dose: 10 ml Documented by: Thiamine [facility] ([facility]amin B[facility]) [facility] Stop: 12/19/19 08:01 Last Admin: 12/18/19 07:59 Dose: 100 mg Documented by: Throat Lozenges (Cepacol Sore Throat Lozenge) 1 lozenge MUCOUS MEM Q2H PRN PRN PRN Reason: SORE THROAT Discharge Activity: Return to Normal Activity, No Restrictions Home Medications: Medications to take at Discharge Amlodipine Besylate 2.5 mg PO DAILY 12/16/19 Aspirin [Aspirin EC] 81 mg PO DAILY@199912/16/19 Atorvastatin Calcium [Lipitor] 20 mg PO QHS 12/16/19 Enalapril Maleate 20 mg PO DAILY 12/16/19 Metoprolol Succinate 50 mg PO DAILY 12/16/19 Prednisone 40 mg PO DAILY 12/16/19 Primary Care Physician: [facility] Doctor,Out of [NON-STAFF] - Please follow up with your Primary Care Physician in: 1 week for f/u lab work and hospital follow-up Medical Necessity - Tobacco Use Smoking Status: Current every day smoker Tobacco Use: Cigarettes Meaningful Use Info Meaningful Use Diagnoses (Choose all that apply): None applicable Inpatient E&M: 68855 [facility]ch Hosp
--- NOTE | 2019-12-18 09:16 | MDS.RN ---
Read and reviewed SN documentation
--- NOTE | 2019-12-18 10:03 | PHA.DC.MR ---
Pharmacy Service has performed discharge medication reconciliation for this patient. The patient's discharge medication list was reviewed for discrepancies and discrepancies were resolved. Home Medications Amlodipine Besylate 2.5 mg PO DAILY 12/16/19 Aspirin [Aspirin EC] 81 mg PO DAILY@199912/16/19 Atorvastatin Calcium [Lipitor] 20 mg PO QHS 12/16/19 Enalapril Maleate 20 mg PO DAILY 12/16/19 Metoprolol Succinate 50 mg PO DAILY 12/16/19 Prednisone 40 mg PO DAILY 12/16/19
--- NOTE | 2019-12-18 13:56 | NURSING ---
Read and reviewed SN documentation
--- NOTE | 2019-12-23 09:15 | CASEMGMT ---
Social Work Discharge follow up Phone call: Discharge Date: 12/18/19 Call Date: 12/23/19 Callt Time: 914 Reason for Follow up: Advanced Care Planning followup Summary of Call: Called pt at two different times. No answer and pt VM is not set up. Interventions: Unable to talk to pt PHUONG Gunter
== END 2019-12-18 10:15 | disposition home or self-care (01) | DRG 682 ==
LOC: ED 15:01 → PCU 15:05
PROVIDERS: Admitting Provider Family Medicine; Emergency Provider Emergency Medicine; PCP Nurse Practitioner; Visit Provider Internal Medicine
DX: N17.9 Acute kidney failure, unspecified (principal); E43 Unspecified severe protein-calorie malnutrition; E87.1 Hypo-osmolality and hyponatremia; E87.6 Hypokalemia; Z86.73 Personal history of transient ischemic attack (TIA), and cerebral infarction without residual deficits; I10 Essential (primary) hypertension; E78.2 Mixed hyperlipidemia; Z79.899 Other long term (current) drug therapy; F17.210 Nicotine dependence, cigarettes, uncomplicated; Z68.20 Body mass index [BMI] 20.0-20.9, adult; M54.41 Lumbago with sciatica, right side; G89.29 Other chronic pain; F10.10 Alcohol abuse, uncomplicated
CPT/HCPCS: 36415; 70450; 71045; 80048; 80053; 80061; 80076; 80307; 80320; 82570; 83690; 83735; 84100; 84300; 84439; 84443; 85025; 93005; 97802; 99251; 99284; 99406; J7030; A4216; G0463; G0480

== ENCOUNTER → 2019-12-24 | Outpatient (CLI) | payer MEDICARE, SELFPAY ==
[2019-12-24 17:34] VITALS: BMI 19.5
[2019-12-24 22:27] LABS: ALB/GLOB Ratio 0.8 RATIO (0.9-2.4); AST(SGOT) 41 U/L (15-37); Alanine Aminotransfer ALT/SGPT 28 U/L (13-56); Albumin, Serum 3.3 g/dL (3.2-5.0); Alkaline Phosphatase 88 U/L (45-117); Anion Gap 10 (5-15); BUN 8 mg/dL (7-18); BUN/Creat Ratio 11.7 RATIO (10-20); Calcium,Total 8.5 mg/dL (8.5-10.1); Chloride 86 mmol/L (98-107); Creatinine, Serum 0.68 mg/dL (0.55-1.02); EST Glomerular Filtration Rate 92 mL/min (>60); Est Glom Filt Rate - Afr Amer 111 mL/min (>60); Globulin 4.1 g/dL (2.2-4.2); Glucose 102 mg/dL (74-106); Magnesium 1.2 mg/dL (1.6-2.6); Potassium 2.3 mmol/L (3.5-5.1); Protein, Total 7.4 g/dL (6.4-8.2); Sodium Level 125 mmol/L (136-145)
== END | disposition home or self-care (01) ==
PROVIDERS: PCP Nurse Practitioner; Referring Provider Nurse Practitioner; Visit Provider Nurse Practitioner
DX: E87.6 Hypokalemia (principal); E87.1 Hypo-osmolality and hyponatremia
CPT/HCPCS: 80053; 83735

== ENCOUNTER → 2020-01-01 | Outpatient (CLI) | payer MEDICARE, SELFPAY ==
[2020-01-01 15:41] VITALS: BMI 19.5
[2020-01-01 22:49] LABS: Absolute Neutrophil Count 3.4 X10^3/uL (2.0-7.7); Basophil# 0.05 X10^3/uL; Basophil% 0.8 % (0-1); Eosinophil# 0.04 X10^3/uL; Eosinophils% 0.7 % (0-5); Hematocrit 36.8 % (37-47); Hemoglobin 12.4 g/dL (12.0-15.0); Lymphocyte % 30.2 % (19-41); Mean Corp Hgb Conc 33.7 g/dL (32-36); Mean Corpuscular Hgb 34.6 pg (27.0-32.0); Mean Corpuscular Volume 102.8 fL (81-99); Mean Platelet Vol. 9.3 fl (6.2-12.0); Monocyte# 0.66 X10^3/uL; Monocyte% 11.1 % (0-10); NRBC Flagged by Analyzer 0 % (0-5); Neutrophil % 56.9 % (47-70); Platelet Count 278 K/mm3 (150-450); RBC Distribution Width CV 12.5 % (11.6-14.6); RBC Distribution Width SD 47.3 fl (35.1-43.9); Red Blood Count 3.58 M/mm3 (4.2-5.4)
[2020-01-01 23:02] LABS: ALB/GLOB Ratio 0.9 RATIO (0.9-2.4); AST(SGOT) 22 U/L (15-37); Alanine Aminotransfer ALT/SGPT 20 U/L (13-56); Albumin, Serum 3.1 g/dL (3.2-5.0); Alkaline Phosphatase 68 U/L (45-117); Anion Gap 7 (5-15); BUN 9 mg/dL (7-18); BUN/Creat Ratio 11.2 RATIO (10-20); Calcium,Total 8.9 mg/dL (8.5-10.1); Chloride 102 mmol/L (98-107); EST Glomerular Filtration Rate 76 mL/min (>60); Est Glom Filt Rate - Afr Amer 92 mL/min (>60); Globulin 3.5 g/dL (2.2-4.2); Glucose 91 mg/dL (74-106); Magnesium 1.7 mg/dL (1.6-2.6); Potassium 3.9 mmol/L (3.5-5.1); Protein, Total 6.6 g/dL (6.4-8.2); Sodium Level 134 mmol/L (136-145)
== END | disposition home or self-care (01) ==
LOC: OLS.AHF 22:27 → LABSPEC 01-04 06:07
PROVIDERS: PCP Nurse Practitioner; Referring Provider Nurse Practitioner; Visit Provider Nurse Practitioner
DX: I10 Essential (primary) hypertension (principal); E87.1 Hypo-osmolality and hyponatremia
CPT/HCPCS: 80053; 83735; 85025

== ENCOUNTER → 2020-01-25 | Outpatient (CLI) | payer MEDICARE, SELFPAY ==
[2020-01-25 20:35] VITALS: BMI 19.5
[2020-01-25 21:54] LABS: ALB/GLOB Ratio 0.9 RATIO (0.9-2.4); AST(SGOT) 22 U/L (15-37); Alanine Aminotransfer ALT/SGPT 20 U/L (13-56); Albumin, Serum 3.5 g/dL (3.2-5.0); Alkaline Phosphatase 79 U/L (45-117); Anion Gap 8 (5-15); BUN 7 mg/dL (7-18); BUN/Creat Ratio 9.5 RATIO (10-20); Calcium,Total 9.3 mg/dL (8.5-10.1); Chloride 99 mmol/L (98-107); Creatinine, Serum 0.73 mg/dL (0.55-1.02); EST Glomerular Filtration Rate 84 mL/min (>60); Est Glom Filt Rate - Afr Amer 102 mL/min (>60); Globulin 3.7 g/dL (2.2-4.2); Glucose 107 mg/dL (74-106); Potassium 3.7 mmol/L (3.5-5.1); Protein, Total 7.2 g/dL (6.4-8.2); Sodium Level 133 mmol/L (136-145)
== END | disposition home or self-care (01) ==
LOC: OLS.AHF 21:06 → LABSPEC 01-26 08:42
PROVIDERS: Referring Provider Nurse Practitioner; Visit Provider Nurse Practitioner
DX: E87.1 Hypo-osmolality and hyponatremia (principal); E87.6 Hypokalemia
CPT/HCPCS: 80053

== ENCOUNTER → 2021-01-05 | Outpatient (CLI) | payer MEDICARE, SELFPAY ==
[2021-01-05 22:11] LABS: Absolute Lymphocyte Count 1.71 X10^3/uL (0.83-4.51); Absolute Neutrophil Count 3.4 X10^3/uL (2.0-7.7); Basophil# 0.06 X10^3/uL; Basophil% 1.1 % (0-1); Eosinophil# 0.06 X10^3/uL; Eosinophils% 1.1 % (0-5); Hematocrit 44.9 % (37-47); Lymphocyte # 1.71 X10^3/ul (0.83-4.51); Mean Corp Hgb Conc 35.6 g/dL (32-36); Mean Corpuscular Hgb 35.9 pg (27.0-32.0); Mean Corpuscular Volume 100.7 fL (81-99); Mean Platelet Vol. 9.1 fl (6.2-12.0); Monocyte% 8.8 % (0-10); NRBC Flagged by Analyzer 0 % (0-5); Neutrophil # 3.36 X10^3/uL (2.7-7.7); Neutrophil % 58.8 % (47-70); Platelet Count 221 K/mm3 (150-450); RBC Distribution Width CV 11.9 % (11.6-14.6); Red Blood Count 4.46 M/mm3 (4.2-5.4); White Blood Count 5.7 K/mm3 (4.4-11.0)
[2021-01-05 22:31] LABS: ALB/GLOB Ratio 0.9 RATIO (0.9-2.4); AST(SGOT) 19 U/L (15-37); Alanine Aminotransfer ALT/SGPT 22 U/L (13-56); Albumin, Serum 3.6 g/dL (3.2-5.0); Alkaline Phosphatase 99 U/L (45-117); Anion Gap 8 (5-15); BUN 11 mg/dL (7-18); BUN/Creat Ratio 12.4 RATIO (10-20); Calcium,Total 9.4 mg/dL (8.5-10.1); Chloride 99 mmol/L (98-107); Creatinine, Serum 0.88 mg/dL (0.55-1.02); EST Glomerular Filtration Rate 68 mL/min (>60); Est Glom Filt Rate - Afr Amer 82 mL/min (>60); Globulin 4.2 g/dL (2.2-4.2); Glucose 112 mg/dL (74-106); Iron Binding Capacity,Total 266 ug/dL (250-450); Phosphorus 3.5 mg/dL (2.5-4.9); Potassium 4.3 mmol/L (3.5-5.1); Prealbumin 25.6 mg/dL (20.0-40.0); Protein, Total 7.8 g/dL (6.4-8.2); Sodium Level 133 mmol/L (136-145)
[2021-01-07 09:20] LABS: Transferrin 217 mg/dL (192-364)
== END | disposition home or self-care (01) ==
PROVIDERS: Visit Provider Nurse Practitioner
DX: I10 Essential (primary) hypertension (principal); D64.9 Anemia, unspecified; N17.9 Acute kidney failure, unspecified; E87.1 Hypo-osmolality and hyponatremia; E87.6 Hypokalemia; E43 Unspecified severe protein-calorie malnutrition
CPT/HCPCS: 80053; 83550; 84100; 84134; 84466; 85025

== ENCOUNTER → 2021-09-01 | Outpatient (CLI) | payer MEDICARE, SELFPAY ==
[2021-09-01 22:23] LABS: BUN 8 mg/dL (7-18); EST Glomerular Filtration Rate 76 mL/min (>60); Glucose 92 mg/dL (74-106)
[2021-09-01 22:24] LABS: ALB/GLOB Ratio 0.9 RATIO (0.9-2.4); AST(SGOT) 30 U/L (15-37); Alanine Aminotransfer ALT/SGPT 22 U/L (13-56); Albumin, Serum 3.6 g/dL (3.2-5.0); Alkaline Phosphatase 104 U/L (45-117); Anion Gap 10 (5-15); Calcium,Total 9.6 mg/dL (8.5-10.1); Chloride 97 mmol/L (98-107); Cholesterol 172 mg/dL (200); Est Glom Filt Rate - Afr Amer 92 mL/min (>60); Globulin 3.9 g/dL (2.2-4.2); High Density Lipoprotein 94 mg/dL; Magnesium 2.2 mg/dL (1.6-2.6); Potassium 3.9 mmol/L (3.5-5.1); Protein, Total 7.5 g/dL (6.4-8.2); Sodium Level 129 mmol/L (136-145); Triglycerides 105 mg/dL; Very Low Density Lipoprotein 21 mg/dL (5-40)
== END | disposition home or self-care (01) ==
PROVIDERS: Visit Provider Nurse Practitioner
DX: E87.1 Hypo-osmolality and hyponatremia (principal); E87.6 Hypokalemia; I10 Essential (primary) hypertension; E83.42 Hypomagnesemia
CPT/HCPCS: 80053; 80061; 83735

== ENCOUNTER → 2021-12-14 | Outpatient (CLI) | payer MEDICARE, SELFPAY ==
[2021-12-14 22:46] LABS: Absolute Lymphocyte Count 1.98 X10^3/uL (0.83-4.51); Absolute Neutrophil Count 2.1 X10^3/uL (2.0-7.7); Basophil# 0.05 X10^3/uL; Basophil% 1.1 % (0-1); Eosinophil# 0.05 X10^3/uL; Eosinophils% 1.1 % (0-5); Hemoglobin 14.7 g/dL (12.0-15.0); Lymphocyte # 1.98 X10^3/ul (0.83-4.51); Lymphocyte % 42.5 % (19-41); Mean Corpuscular Volume 102.9 fL (81-99); Mean Platelet Vol. 8.9 fl (6.2-12.0); Monocyte# 0.51 X10^3/uL; Monocyte% 10.9 % (0-10); NRBC Flagged by Analyzer 0 % (0-5); Neutrophil # 2.05 X10^3/uL (2.7-7.7); Platelet Count 157 K/mm3 (150-450); RBC Distribution Width CV 12.7 % (11.6-14.6); RBC Distribution Width SD 48.5 fl (35.1-43.9); Red Blood Count 4.08 M/mm3 (4.2-5.4); White Blood Count 4.7 K/mm3 (4.4-11.0)
[2021-12-15 05:35] LABS: ALB/GLOB Ratio 0.9 RATIO (0.9-2.4); AST(SGOT) 28 U/L (15-37); Alanine Aminotransfer ALT/SGPT 21 U/L (13-56); Albumin, Serum 3.6 g/dL (3.2-5.0); Alkaline Phosphatase 80 U/L (45-117); Anion Gap 5 (5-15); BUN 8 mg/dL (7-18); BUN/Creat Ratio 10.2 RATIO (10-20); Calcium,Total 8.9 mg/dL (8.5-10.1); Chloride 101 mmol/L (98-107); Cholesterol 181 mg/dL (200); Creatinine, Serum 0.78 mg/dL (0.55-1.02); EST Glomerular Filtration Rate 78 mL/min (>60); Est Glom Filt Rate - Afr Amer 94 mL/min (>60); Globulin 3.8 g/dL (2.2-4.2); Glucose 96 mg/dL (74-106); High Density Lipoprotein 68 mg/dL; Potassium 3.9 mmol/L (3.5-5.1); Protein, Total 7.4 g/dL (6.4-8.2); Sodium Level 133 mmol/L (136-145); Triglycerides 137 mg/dL; Very Low Density Lipoprotein 27 mg/dL (5-40)
== END | disposition home or self-care (01) ==
PROVIDERS: Visit Provider Nurse Practitioner
DX: E87.1 Hypo-osmolality and hyponatremia (principal); E43 Unspecified severe protein-calorie malnutrition; I10 Essential (primary) hypertension
CPT/HCPCS: 80053; 80061; 85025

== ENCOUNTER 2022-09-23 13:49 | Inpatient (IN) | payer MEDICARE, SELFPAY ==
[2022-09-23] VITALS (10 sets, daily range): BP systolic 71–201; BP diastolic 49–77; PULSE 70–83; RESP 17–25; TEMP 35.6–36.7; O2SAT 95–100; BMI 19.5; BMI 19.3
--- NOTE | 2022-09-23 14:03 | EKG12_ITS ---
Test Reason : SOB Blood Pressure : / mmHG Vent. Rate : 076 BPM Atrial Rate : 076 BPM P-R Int : 148 ms QRS Dur : 080 ms QT Int : 410 ms P-R-T Axes : 022 058 167 degrees QTc Int : 461 ms Normal sinus rhythm Left ventricular hypertrophy with repolarization abnormality ( Sokolow-Donaldson ) Abnormal ECG Confirmed by JUDE MOY, RONY ([id number]), international editorial producer SANTOS ROBERTO ([id number]) on 09/24/2022 11:38:57 AM Referred By: Confirmed By:RONY ROQUE MD
--- NOTE | 2022-09-23 14:03 | RAD_ITS ---
INDICATION: shortness of breath EXAMINATION/TECHNIQUE: X-RAY - portable upright AP chest x-ray COMPARISON: 12/16/2019 FINDINGS: LINES/DEVICES: None. LUNGS: Bibasilar patchy airspace opacities with blunting of the left costophrenic angle. 1.7 cm nodular opacity in the periphery of the left midlung field. No vascular congestion. MEDIASTINUM AND CARDIOVASCULAR STRUCTURES: Cardiac silhouette not enlarged. Central airways and mediastinal contour are unremarkable. BONES AND SOFT TISSUES: No acute pathology. RAD/Chest 1 View (Portable) IMPRESSION: Patchy bibasilar airspace disease with probable left pleural effusion. Findings suspicious for pneumonia. Recommend short-term follow-up to resolution. 1.7 cm nodule in periphery of left midlung field. Recommend follow-up chest CT with contrast to exclude pulmonary parenchymal nodule and possible neoplasia. Electronically Signed: Corey Olguin MD at 15:17 EDT ,
--- NOTE | 2022-09-23 14:05 | EDS_ITS ---
HPI History of Present Illness Chief Complaint: Shortness of Breath Narrative Narrative: 67-year-old female past medical history of hypertension, hyperlipidemia, smoker of 1 pack a day presents with orthopnea that she has had over the last 3 to 4 days. She denies any fevers or chills. No cough. She currently does not feel short of breath but states that over the last 3-4 nights, whenever she lays down to go to bed, she cannot sleep because she feels short of breath. She denies an y weight gain, no swelling of her legs, no recent chest pain or other symptoms. She states she does not have a diagnosis of COPD or CHF. It only happens to her at night. She was able to lay down this morning and sleep from 6 AM until noon. [facility] Medical History Hyperlipidemia Hypertension Hypokalemia Hyponatremia Menopausal symptoms R carotid 100% block for 20 years Right-sided low back pain with sciatica Home Medications aspirin 81 mg tablet,delayed release 81 mg PO DAILY@1999 HEALTH MAINTENANCE 12/16/19 [History Last Taken 12/14/19] magnesium oxide 500 mg capsule 500 mg PO DAILY 01/04/20 [History Last Taken Unknown] amlodipine 2.5 mg tablet 2.5 mg PO DAILY BP #90 tabs 12/14/21 [Rx Last Taken Unknown] atorvastatin 20 mg tablet 20 mg PO QHS CHOLESTEROL #90 tabs 12/14/21 [Rx Last Taken Unknown] enalapril maleate 20 mg tablet 20 mg PO DAILY blood pressure #90 tabs 12/14/21 [Rx Last Taken Unknown] metoprolol succinate 50 mg tablet,extended release 24 hr 50 mg PO DAILY HEART #90 tabs 12/14/21 [Rx Last Taken Unknown] potassium chloride 10 mEq tablet,extended release 10 meq PO DAILY #90 tabs 01/12/22 [Rx Last Taken Unknown] Allergy/AdvReac Type Severity Reaction Status Date / Time No Known Allergies Allergy Verified 09/23/22 13:49 Family History Father Heart disease Diabetes Brother Diabetes Uncle Cancer Social History Smoking Status: Current every day smoker tobacco type: cigarettes alcohol intake: current ROS ROS ED ROS Narrative Constitutional: No fever, no chills. HEENT: No sore throat. No neck pain. No loss of vision. No rhinorrhea. Cardiovascular: No chest pain. No palpitations. No pedal edema. Respiratory: No cough, no shortness of breath currently. Positive orthopnea at night over the last 3 to 4 days. Abdominal: No abdominal pain. No nausea. No vomiting. Genitourinary: No dysuria. No hematuria. Musculoskeletal: No myalgias. No arthralgias. Neurologic: No headaches. No dizziness. No lightheadedness. Skin: No rash. No change in color. Psychiatric: No depression. No anxiety. EXAM Physical Exam Narrative Exam Narrative: Afebrile. Vital signs noted. HEENT: Normocephalic. Atraumatic. PERRL, EOMI. Neck soft and supple. No point tenderness or step off. Cardiovascular: Regular rate and rhythm. No murmurs, rubs, or gallops appreciated. Respiratory: No tachypnea. Lungs clear to auscultation bilaterally. Decreased breath sounds bilateral bases. Gastrointestinal: Abdomen soft, nontender, with normoactive bowel sounds. No rebound or guarding. Neurological: Awake. Alert. Nonfocal, nonlateralizing. Skin: No rash. Normal color. No pallor. Musculoskeletal: No pedal edema. Full range of motion extremities. Const Vital Signs: 09/23/22 13:50 09/23/22 14:32 09/23/22 14:33 Temperature 96.1 F L Temperature Source Temporal Pulse Rate 83 76 Respiratory Rate 18 17 Respiratory Effort Labored Respiratory Depth Shallow Respiratory Pattern Normal Blood Pressure 201/77 H Blood Pressure Mean 118 Pulse Ox 100 Oxygen Delivery Method Room Air Room Air 09/23/22 15:14 Temperature Temperature Source Pulse Rate Respiratory Rate Respiratory Effort Respiratory Depth Respiratory Pattern Blood Pressure 99/60 Blood Pressure Mean 73 Pulse Ox Oxygen Delivery Method MDM MDM MDM Narrative Medical decision making narrative: Patient does have elevated blood pressure of 201/77, but she is asymptomatic. Smoking cessation was discussed, but patient denies wanting to quit smoking. Her pulse ox is 100% on room air without evidence of hypoxia. In the differential is COPD exacerbation versus undiagnosed CHF, but clinically she shows no signs of fluid overload. Chest x-ray will be obtained to look for pneumonia/pulmonary edema. I will obtain basic laboratory work to look for anemia or other causes of her shortness of breath. She was given an aerosolized treatment here and a loading dose of steroid. EKG was obtained and interpreted by myself independently. It shows normal sinus rhythm at 76 bpm without ectopy, no acute ST changes. While she has ST depression in V3 through V6 and in lead I, these are chronic ST depressions when compared to EKG from 2019. I do not feel that a troponin is indicated. I reviewed her CBC and she has a normal WBC count of 6.3, hemoglobin normal at 12.0, hematocrit slightly low at 34.3, platelet count normal at 174. In review of her BMP, she has hyponatremia of 126, she has had hyponatremia in the past, and it seems to be chronic. She currently has an acute hypokalemia of 3.2 which was replaced orally, chloride low at 90. Glucose is appropriately elevated at 96. BNP is elevated at 1903, but clinically she has no signs of pedal edema or other fluid overload. She had elevated blood pressure of 201 systolic so she was given a dose of metoprolol orally here. She then experienced hypotension with a systolic blood pressure in the 80s but was still mentating. I had a lactic acid and blood cultures. She will be treated for pneumonia as my interpretation of her chest x-ray shows a left lower lobe pleural effusion and pneumonia. I reviewed the radiology report which confirms my independent interpretation. Her blood pressure seems to be improving with a systolic of 99 currently. She will be bolused 500 mL. At this point in time, I feel she can be admitted/placed on observation for her constellation of laboratory findings and symptoms. I discussed patient with Dr. Linsey Crystal who will admit her to the PCU. Patient is in stable condition. History & Record Review Discussion w/independent historian: Patient Additional record(s) reviewed:: Prior ED visit and Prior labs Lab Data Attestation: I reviewed the patient's lab results. Labs: Laboratory Results - last 24 hr 09/23/22 09/23/22 09/23/22 14:23 14:23 14:23 WBC 6.3 RBC 3.47 L Hgb 12.0 Hct 34.3 L MCV 98.8 MCH 34.6 H MCHC 35.0 RDW Std Deviation 43.9 RDW Coeff of Brooklynn 12.0 Plt Count 174 MPV 8.4 Immature Gran % (Auto) 0.500 Neut % (Auto) 76.6 H Lymph % (Auto) 11.2 L [place] % (Auto) 11.4 H Eos % (Auto) 0.0 Baso % (Auto) 0.3 Absolute Neuts (auto) 4.8 Absolute Lymphs (auto) 0.71 L Nucleated RBC % 0 Sodium 126 L Potassium 3.2 L Chloride 90 L Carbon Dioxide 24.0 Anion Gap 12 BUN 7 Creatinine 0.64 Estim Creat Clear Calc 38.67 Est GFR (MDRD) Af Amer 119 Est GFR (MDRD) Non-Af 99 BUN/Creatinine Ratio 11.0 Glucose 96 Calcium 8.7 B-Natriuretic Peptide 1903.1 H Radiography Diagnostic Testing: Clinical Impression(s) from Imaging Studies Chest X-Ray 09/23/22 14:03 IMPRESSION: Patchy bibasilar airspace disease with probable left pleural effusion. Findings suspicious for pneumonia. Recommend short-term follow-up to resolution. 1.7 cm nodule in periphery of left midlung field. Recommend follow-up chest CT with contrast to exclude pulmonary parenchymal nodule and possible neoplasia. Electronically Signed: Corey Olguin MD at 15:17 EDT , Discharge Plan Dx/Rx/DC Orders Clinical Impression: Hyponatremia, Hypokalemia, Pneumonia, Elevated brain natriuretic peptide (BNP) level, Hypertensive urgency Disposition Disposition: Acute Care Hospital [facility]
[2022-09-23] MEDS: predniSONE 20 MG Tablet 60 MG PO (14:29)
[2022-09-23] MEDS: Ipratropium/Albuterol Sulfate 3 ML AMPUL.NEB INHALATION ×2 (14:29→19:21)
[2022-09-23] MEDS: Metoprolol(XL)Succ 50 MG Tablet PO (14:29)
[2022-09-23 14:31] LABS: Absolute Lymphocyte Count 0.71 X10^3/uL (0.83-4.51); Absolute Neutrophil Count 4.8 X10^3/uL (2.0-7.7); Basophil# 0.02 X10^3/uL; Basophil% 0.3 % (0-1); Hematocrit 34.3 % (37-47); Lymphocyte # 0.71 X10^3/ul (0.83-4.51); Lymphocyte % 11.2 % (19-41); Mean Corpuscular Hgb 34.6 pg (27.0-32.0); Mean Corpuscular Volume 98.8 fL (81-99); Mean Platelet Vol. 8.4 fl (6.2-12.0); Monocyte# 0.72 X10^3/uL; Monocyte% 11.4 % (0-10); NRBC Flagged by Analyzer 0 % (0-5); Neutrophil # 4.84 X10^3/uL (2.7-7.7); Neutrophil % 76.6 % (47-70); Platelet Count 174 K/mm3 (150-450); RBC Distribution Width SD 43.9 fl (35.1-43.9); Red Blood Count 3.47 M/mm3 (4.2-5.4); White Blood Count 6.3 K/mm3 (4.4-11.0)
[2022-09-23 14:42] LABS: Anion Gap 12 (5-15); BUN 7 mg/dL (7-18); Calcium,Total 8.7 mg/dL (8.5-10.1); Chloride 90 mmol/L (98-107); Creatinine, Serum 0.64 mg/dL (0.55-1.02); EST Glomerular Filtration Rate 99 mL/min (>60); Est Glom Filt Rate - Afr Amer 119 mL/min (>60); Estimated Creatinine Clearance 38.67 ml/min; Glucose 96 mg/dL (74-106); Potassium 3.2 mmol/L (3.5-5.1); Sodium Level 126 mmol/L (136-145)
[2022-09-23] MEDS: Potassium Chloride Oral Tablet 20 MEQ 40 MEQ PO (15:22)
--- NOTE | 2022-09-23 16:26 | HP.PCM.HOS_ITS ---
HPI - General General Date of Admission: 09/23/22 Date of Service: 09/23/22 Chief Complaint: SOB HPI Narrative WEST CALLEJAS, is a 67-year-old female with a history of tobacco use, HTN, and a right carotid blockage chronically presented to [facility] 09/23/2022 with increasing orthopnea at bedtime for several days. In the ED he was found to have systolic blood pressure over 200 and was given extra dose of metoprolol which plummeted systolic pressures in the 90s but she maintained her mentation. Additionally she was found to have a BNP of 1900 but had a chest x- ray with patchy bibasilar airspace disease with probable left pleural effusion which queried pneumonia and also 1.7 cm nodule peripheral left midlung field. She was get on azithromycin and Rocephin not appear clinically overloaded and had low blood pressure she was given fluids and hospitalist consulted for admission. Evaluated patient at bedside in ED and she reports that she was in her usual health until 3 to 4 days ago when she started feeling generally weak, short of breath when she laid down at night but no shortness of breath with exertion or during the day, and had increased cough with yellow sputum production. Denied fevers or any known sick contacts. Smokes 1 pack/day but denies known history of COPD, additionally drinks 3-4 beers a day occasionally will go 1 to 2 days without drinking and denies any history of DTs or withdrawal seizures. [facility] Medical History Hyperlipidemia Hypertension Hypokalemia Hyponatremia Menopausal symptoms R carotid 100% block for 20 years Right-sided low back pain with sciatica Home Medications aspirin 81 mg tablet,delayed release 81 mg PO DAILY@1999 HEALTH MAINTENANCE 12/16/19 [History Last Taken 12/14/19] magnesium oxide 500 mg capsule 500 mg PO DAILY supplement 01/04/20 [History Last Taken Unknown] amlodipine 2.5 mg tablet 2.5 mg PO DAILY BP #90 tabs 12/14/21 [Rx Last Taken Unknown] atorvastatin 20 mg tablet 20 mg PO QHS CHOLESTEROL #90 tabs 12/14/21 [Rx Last Taken Unknown] enalapril maleate 20 mg tablet 20 mg PO DAILY blood pressure #90 tabs 12/14/21 [Rx Last Taken Unknown] metoprolol succinate 50 mg tablet,extended release 24 hr 50 mg PO DAILY HEART #90 tabs 12/14/21 [Rx Last Taken Unknown] potassium chloride 10 mEq tablet,extended release 10 meq PO DAILY supplement 09/23/22 [History Last Taken Unknown] Allergy/AdvReac Type Severity Reaction Status Date / Time No Known Allergies Allergy Verified 09/23/22 13:49 Family History Father Heart disease Diabetes Brother Diabetes Uncle Cancer Social History Smoking Status: Current every day smoker tobacco type: cigarettes alcohol intake: current ROS ROS Narrative General: Denies fever/chills HENT: Denies headache, denies stuffy nose, had somewhat of a sore throat with coughing EYES: Denies changes in vision Resp: Short of breath when lying down at night keeping her from sleeping, cough productive of yellow sputum Cardiac: Denies chest pain GI: Denies abdominal pain, denies changes in bowel, denies nausea/vomiting : Denies changes in urination Extremity: Denies swelling MSK: Feels generalized weakness Neuro: Denies any numbness/tingling Heme: Denies any bleeding or bruising Skin: Denies rashes Psychiatric: No complaints voiced Vital Signs Vital Signs Vital Signs: 09/23/22 13:50 09/23/22 14:32 09/23/22 14:33 Temperature 96.1 F L Temperature Source Temporal Pulse Rate 83 76 Respiratory Rate 18 17 Respiratory Effort Labored Respiratory Depth Shallow Respiratory Pattern Normal Blood Pressure 201/77 H Blood Pressure Mean 118 Pulse Ox 100 Oxygen Delivery Method Room Air Room Air 09/23/22 15:14 09/23/22 16:15 Temperature 97.9 F Temperature Source Oral Pulse Rate 70 Respiratory Rate 25 H Respiratory Effort Respiratory Depth Respiratory Pattern Blood Pressure 99/60 93/51 L Blood Pressure Mean 73 65 Pulse Ox 95 Oxygen Delivery Method Room Air Weight Weight: 45.495 kg Body Mass Index (BMI) 19.5 Physical Exam Narrative General: Alert, oriented, thin, no apparent distress HEENT: Atraumatic, normocephalic Eyes: Anicteric, normal conjunctiva, extraocular movements grossly intact, has smacking movements of the lips on occasion Neck: Supple Respiratory: Somewhat decreased with slight crackles on left side greater than right, normal respiratory effort Cardiovascular: Regular rate and rhythm GI: Soft, nontender, nondistended Extremities: No edema, very thin legs Musculoskeletal: Moving all extremities Neuro: No overt focal neurological deficits Skin: No rashes appreciated Psych: Cooperative Results Lab / Micro Data Result Diagrams: 09/23/22 14:23 09/23/22 14:23 Labs: Laboratory Results - last 24 hr 09/23/22 14:23: WBC 6.3, RBC 3.47 L, Hgb 12.0, Hct 34.3 L, MCV 98.8, MCH 34.6 H, MCHC 35.0, RDW Std Deviation 43.9, RDW Coeff of Brooklynn 12.0, Plt Count 174, MPV 8.4, Immature Gran % (Auto) 0.500, Neut % (Auto) 76.6 H, Lymph % (Auto) 11.2 L, [place] % (Auto) 11.4 H, Eos % (Auto) 0.0, Baso % (Auto) 0.3, Absolute Neuts (auto) 4.8, Absolute Lymphs (auto) 0.71 L, Nucleated RBC % 0 09/23/22 14:23: Sodium 126 L, Potassium 3.2 L, Chloride 90 L, Carbon Dioxide 24.0, Anion Gap 12, BUN 7, Creatinine 0.64, Estim Creat Clear Calc 38.67, Est GFR (MDRD) Af Amer 119, Est GFR (MDRD) Non-Af 99, BUN/Creatinine Ratio 11.0, Glucose 96, Calcium 8.7 09/23/22 14:23: B-Natriuretic Peptide 1903.1 H Radiology Impression Chest X-Ray 09/23/22 14:03 IMPRESSION: Patchy bibasilar airspace disease with probable left pleural effusion. Findings suspicious for pneumonia. Recommend short-term follow-up to resolution. 1.7 cm nodule in periphery of left midlung field. Recommend follow-up chest CT with contrast to exclude pulmonary parenchymal nodule and possible neoplasia. Electronically Signed: Corey Olguin MD at 15:17 EDT Reading Location ID and State: [facility] / [place] Tel , Service support , Assessment & Plan Assessment/Plan (1) Pneumonia: (2) Elevated brain natriuretic peptide (BNP) level: (3) Hypertensive urgency: PLAN: Plan #Shortness of breath, likely 2/2 CAP but cannot r/o component of HF -Imaging: Chest x-ray with patchy bibasilar airspace disease concerning for p neumonia -DuoNebs and as needed albuterol -Sputum culture, COVID and flu, respiratory panel -Urine antigens -Mucinex, I/S -Rocephin and azithromycin -Denies history of COPD but has long smoking history and previous x-ray with flattening of the diaphragm and suggestive of hyperinflation, no wheezing and with infiltrate suspect pneumonia over copd exacerbation -Did have BNP of 1900 but does not appear clinically overloaded, possible slight left-sided pleural effusion seen on chest x-ray but if present is minimal on available films, does have the history of shortness of breath lying flat but no increase with exertion and none on exam -I's and O's, daily weights -We will obtain echo -Low threshold to diurese if any respiratory compromise that she was receiving fluids in the ED #Density in left midlung field -Chest x-ray with 1.7 cm nodule in periphery of left mid field of lung and recommended follow-up with CT #Hypertensive urgency and subsequent hypotension -Systolic over 200 in the ED -Received dose of hydralazine and extra dose of metoprolol in ED and systolic fell into the 90s -Monitor BP closely, hold home antihypertensives at this time until blood pressure begins to recover #Chronic hyponatremia -Currently 126, has previous values ranging from 117 with highest sodium recorde d of 133 in various ranges in between -Is not symptomatic -We will obtain urine studies #Hypokalemia -Replaced #Alcohol use disorder - We will begin CIWA every 4 for 24 hours, then every 6 for 24 hours, then every 12 until discharge -prn ativan coverage -Begin thiamine and folic acid supplementation -EtOH and drug screen will be obtained #Tobacco use -Advise cessation -Nicotine patch ordered #DVT ppx: Lovenox subq Linsey Crystal MD Time spent in the patient's overall evaluation,decision-making process, review of diagnostic data, adjustment of management, discussion with other providers, n ursing nursing and ancillary staff involved in patient's care documentation, 60 Minutes Charges/Coding Visit Charges Inpatient E&M: 42932 Init Hosp L2
[2022-09-23 16:55] LABS: Alcohol, Blood (Medical)-Serum < 3.0 mg/dL
[2022-09-23 16:58] LABS: Osmolality, Serum 261 mOsm/KG (280-301)
[2022-09-23 17:10] LABS: AST(SGOT) 29 U/L (15-37); Alanine Aminotransfer ALT/SGPT 16 U/L (13-56); Alkaline Phosphatase 92 U/L (45-117); Bilirubin, Direct 0.29 mg/dL (0.00-0.30); Magnesium 2.2 mg/dL (1.6-2.6); Phosphorus 2.8 mg/dL (2.5-4.9); Thyroid Stim Hormone (TSH) 0.94 uIU/mL (0.358-3.74)
[2022-09-23 17:14] LABS: International Normalized Ratio 1.1
--- NOTE | 2022-09-23 17:25 | ECHOCS_ITS ---
Reason For Study: DYSPNEA Procedure This was a 2D Doppler, Color Flow transthoracic echocardiogram. The study was technically difficult. Contrast injection was performed. Exam performed portable in patient room. Left Ventricle Normal LV size. Left ventricular systolic function is normal. The estimated ejection fraction is 65 %. Stage 3 diastolic dysfunction. No regional wall motion abnormalities noted. Right Ventricle Normal RV size. Normal systolic function. Atria Normal left atrium. Normal right atrium. Mitral Valve Normal mitral valve. Tricuspid Valve Normal tricuspid valve. Mild to moderate (1-2+) tricuspid valve insufficiency. Pulmonary artery systolic pressure is 47 mmHg. Aortic Valve Normal aortic valve. Pulmonic Valve Normal pulmonic valve. Great Vessels Normal aortic root. The pulmonary artery is normal size. Normal inferior vena cava. Pericardium/Pleural No pericardial effusion. Medication Diluted definity 2ml given slow IV push to enhance endocardial definition. MMode/2D Measurements & Calculations LVIDd: 4.6 cm IVSd: 0.83 cm LAV(MOD-sp4): 48.8 ml LVIDs: 3.5 cm LVPWd: 0.82 cm FS: 23.7 % LVAd ap4: 26.3 cm2 SV(MOD-sp4): 55.1 ml SV(sp4-el): 57.9 ml LVLd ap4: 6.7 cm EDV(MOD-sp4): 83.4 ml EDV(sp4-el): 87.6 ml LVAs ap4: 14.2 cm2 LVLs ap4: 5.8 cm ESV(MOD-sp4): 28.3 ml ESV(sp4-el): 29.7 ml EF(MOD-sp4): 66.1 % EF(sp4-el): 66.1 % LA A4 area: 18.1 cm2 LA dimension(2D): 4.3 cm Time Measurements MV dec time: 0.15 sec Doppler Measurements & Calculations MV E max justo: 129.1 cm/sec Lat Peak E' Justo: 6.7 cm/sec Med Peak E' Justo: 6.1 cm/sec MV A max justo: 47.1 cm/sec E/E' lat: 19.2 E/E' med: 21.1 MV E/A: 2.7 MV V2 max: 137.9 cm/sec Ao V2 max: 87.8 cm/sec MV max P.6 mmHg MV dec slope: 849.5 cm/sec2 Ao max P.1 mmHg MV V2 mean: 69.2 cm/sec Ao V2 mean: 64.8 cm/sec MV mean P.5 mmHg Ao mean P.8 mmHg MV V2 VTI: 29.8 cm Ao V2 VTI: 20.4 cm AV (velocity ratio): 1.0 LV V1 max: 81.9 cm/sec PA V2 max: 94.6 cm/sec TR max justo: 328.9 cm/sec LV V1 max P.7 mmHg PA V2 mean: 70.2 cm/sec TR max P.3 mmHg LV V1 mean P.7 mmHg LV V1 mean: 62.0 cm/sec LV V1 VTI: 20.7 cm ECHO/Echo Complete W/ Contrast Interpretation Summary Normal LV size. Left ventricular systolic function is normal. The estimated ejection fraction is 65 %. Stage 3 diastolic dysfunction. Pulmonary artery systolic pressure is 47 mmHg. Ordering Physician: Linsey Crystal Performed By: Denisha Mcnair RCS
[2022-09-23 19:07] LABS: Bacteria 0 SEEN /hpf (None Seen); Mucous, Urine 0 SEEN /hpf (<or=2+); Red Blood Cells-Urine 0 SEEN /hpf (0-5); Squamous Epithelial Cells - UA 0 SEEN /hpf (5-10)
[2022-09-23 19:18] LABS: Color, Urine Yellow (Yellow); Glucose, Dipstick Normal (Normal); Ketone-Dipstick 15 mg/dl (Negative); Leukocyte Esterase-Dipstick 500 /ul (Negative); Nitrite-Dipstick Positive (Negative); Occult Blood-Urine 25 /ul (Negative); Protein-Dipstick 100 mg/dl (Negative); Specific Gravity, Urine 1.005 (1.002-1.030); Urine Bilirubin Dipstick Negative (Negative); Urine Clarity Clear (Clear); Urine Urobilinogen Normal (Normal); Urine pH 6.5 (5.0 - 8.0)
[2022-09-23 19:29] LABS: White Blood Cells 0-5 SEEN /hpf (0-5)
[2022-09-23 19:31] LABS: Amphetamine Urine VISTA NEGATIVE (<1000 ng/mL); Barbiturate Urine VISTA NEGATIVE (< 200 ng/mL); Benzodiazepine Urine VISTA NEGATIVE (< 200 ng/mL); Cocaine Urine VISTA NEGATIVE (< 300 ng/mL); Ecstacy Urine VISTA NEGATIVE (< 500 ng/mL); Methadone Urine VISTA NEGATIVE (< 300 ng/mL); PCP Urine VISTA NEGATIVE (< 25 ng/mL); THC Urine VISTA POSITIVE (< 50 ng/mL); Vista UDS pH Range 6
[2022-09-23 19:38] LABS: Urea Nitrogen, Urine 140 mg/dL (NO RANGE EST.); Urine Chloride 29 mmol/L (Not Establ.); Urine Sodium 28 mmol/L (Not Establ.)
[2022-09-23 19:44] LABS: Osmolality, Urine 160 mOsm/KG
[2022-09-23 20:10] LABS: Reflex Lactate? Y
[2022-09-23] MEDS: Atorvastatin Calcium 20 MG Tablet PO (22:13)
[2022-09-23] MEDS: guaiFENesin 1,200 MG Tablet 1200 MG PO (22:13)
[2022-09-23] MEDS: Heparin Injection (Vial) 5,000 UNIT/ML VIAL 5000 UNIT SC (22:13)
[2022-09-24] VITALS (8 sets, daily range): BP systolic 154–186; BP diastolic 51–70; PULSE 73–90; RESP 16–18; TEMP 36.4–36.8; O2SAT 91–97; BMI 19.6
[2022-09-24] MEDS: Ipratropium/Albuterol Sulfate 3 ML AMPUL.NEB INHALATION ×3 (07:13→19:28)
[2022-09-24 07:26] LABS: Absolute Lymphocyte Count 0.63 X10^3/uL (0.83-4.51); Absolute Neutrophil Count 4.7 X10^3/uL (2.0-7.7); Basophil# 0.01 X10^3/uL; Basophil% 0.2 % (0-1); Lymphocyte # 0.63 X10^3/ul (0.83-4.51); Lymphocyte % 10.9 % (19-41); Mean Corp Hgb Conc 34.4 g/dL (32-36); Mean Corpuscular Hgb 34.5 pg (27.0-32.0); Mean Corpuscular Volume 100.3 fL (81-99); Mean Platelet Vol. 8.7 fl (6.2-12.0); Monocyte# 0.43 X10^3/uL; Monocyte% 7.5 % (0-10); NRBC Flagged by Analyzer 0 % (0-5); Neutrophil # 4.67 X10^3/uL (2.7-7.7); Neutrophil % 80.9 % (47-70); Platelet Count 192 K/mm3 (150-450); RBC Distribution Width CV 12.3 % (11.6-14.6); RBC Distribution Width SD 45.2 fl (35.1-43.9); Red Blood Count 3.19 M/mm3 (4.2-5.4); White Blood Count 5.8 K/mm3 (4.4-11.0)
[2022-09-24] MEDS: Folic Acid 1 MG Tablet PO (08:17)
[2022-09-24] MEDS: Cyanocobalamin 500 MCG Tablet 1000 MCG PO (08:17)
[2022-09-24] MEDS: guaiFENesin 1,200 MG Tablet 1200 MG PO ×2 (08:17→21:13)
[2022-09-24] MEDS: Potassium Chloride Oral Tablet 10 MEQ PO (08:17)
[2022-09-24] MEDS: Heparin Injection (Vial) 5,000 UNIT/ML VIAL 5000 UNIT SC ×2 (08:18→21:13)
[2022-09-24 08:46] LABS: ALB/GLOB Ratio 0.7 RATIO (0.9-2.4); AST(SGOT) 24 U/L (15-37); Alanine Aminotransfer ALT/SGPT 14 U/L (13-56); Albumin, Serum 2.6 g/dL (3.2-5.0); Alkaline Phosphatase 77 U/L (45-117); Anion Gap 10 (5-15); BUN 10 mg/dL (7-18); Calcium,Total 8.9 mg/dL (8.5-10.1); Chloride 100 mmol/L (98-107); Creatinine, Serum 0.67 mg/dL (0.55-1.02); EST Glomerular Filtration Rate 93 mL/min (>60); Est Glom Filt Rate - Afr Amer 113 mL/min (>60); Estimated Creatinine Clearance 38.68 ml/min; Globulin 3.8 g/dL (2.2-4.2); Glucose 122 mg/dL (74-106); Potassium 4.1 mmol/L (3.5-5.1); Protein, Total 6.4 g/dL (6.4-8.2); Sodium Level 131 mmol/L (136-145); T4 Free Direct 1.33 ng/dL (0.76-1.46)
--- NOTE | 2022-09-24 11:20 | CASEMGMT ---
RN CM Face to Face with patient for initial transition planning/care coordination assessment. RN CM introduced self and role at [facility]. Patient lying in bed, alert and oriented. Patient willing to participate in assessment and is able to answer all questions appropriately. Care providers, pharmacy, and demographics verified. Patient wishes to discharge home, denies need for home health at this time. Patient states she has no further needs or concerns at this time. CM to follow for discharge planning needs that may arise. PCP: Duane CLINE Specialists: none Preferred Pharmacy: [facility] Insurance: [facility] Prescription Benefit: yes Living Will/HPOA: none LNOK: brother Living Arrangements: Patient lives alone in single story home with 3 steps and railing to enter the home. Patient states she is independent at home. Transportation: self, neighbor, brother DME/HHC: Patient has raised toilet, cane, walker at home. Patient states she smokes 1 PPD of cigarettes and drinks 4 beers daily, patient declines wanting resources. Disposition Plan: Patient to discharge home with family support and follow-up plans in place. Patricia ASIF, RN, CM
--- NOTE | 2022-09-24 11:32 | PN.HOSP_ITS ---
Reason for Visit Reason for Visit: Diagnoses Hypertensive urgency (09/23/22) Pneumonia, unspecified organism (09/23/22) Other specified abnormal findings of blood chemistry (09/23/22) Subjective Subjective Standing feel better today, still has productive cough but orthopnea is improving Objective Data Objective Data Vital Signs: Vital Signs Temp Pulse Resp BP Pulse Ox O2 Del Method 98.2 F 73 18 175/55 H 96 Room Air 09/24/22 08:15 09/24/22 08:15 09/24/22 08:15 09/24/22 08:15 09/24/22 08:15 09/24/22 08:15 Oxygen Delivery Method Room Air Weight: 45.6 kg Body Mass Index (BMI) 19.6 Intake & Output: Intake and Output for Last 24 Hours 09/22/22 09/23/22 09/24/22 23:59 23:59 23:59 Intake Total 1217 / 1217 370 / 370 Balance 1217 / 1217 370 / 370 Medical Nutrition Assessment Dietitian: Malnutrition Criteria Met Start: 09/24/22 10:12 Freq: Status: Active Protocol: Document 09/24/22 10:12 AG (Rec: 09/24/22 10:12 AG [id number]) Nutrition Malnutrition Evidence of Malnutrition Exists Yes Malnutrition (moderate): Acute Illness/Injury Evidenced By Suboptimal Energy Intake ( Moderate),Weight Loss ( Moderate),Physical Changes ( Mild) Clinical Problem Acute Disease or Injury Related Malnutrition Etiology moderate, acute malnutrition related to inadequate energy intake Signs/Symptoms as evidenced by unintentional wt loss of 2.5#/2.4% <2 weeks; estimated PO intake meeting < 75% of estimated energy needs > 1 week; BMI 19.6; mild muscle wasting/fat loss per physical exam Status Active Problem Recommendation Dietitian Recommendations/Changes continue regular diet as tolerated; will offer 240mL ensure clear TID w/ meals for additional protein/calories if consumed. Will monitor sodium levels- may need to consider fluid restriction if hyponatremia persists. Lab / Micro Data Result Diagrams: 09/24/22 06:19 09/24/22 06:19 Labs: Laboratory Results - last 24 hr 09/23/22 14:23: WBC 6.3, RBC 3.47 L, Hgb 12.0, Hct 34.3 L, MCV 98.8, MCH 34.6 H, MCHC 35.0, RDW Std Deviation 43.9, RDW Coeff of [place] 12.0, Plt Count 174, MPV 8.4, Immature Gran % (Auto) 0.500, Neut % (Auto) 76.6 H, Lymph % (Auto) 11.2 L, [place] % (Auto) 11.4 H, Eos % (Auto) 0.0, Baso % (Auto) 0.3, Absolute Neuts (auto) 4.8, Absolute Lymphs (auto) 0.71 L, Nucleated RBC % 0 09/23/22 14:23: Sodium 126 L, Potassium 3.2 L, Chloride 90 L, Carbon Dioxide 24.0, Anion Gap 12, BUN 7, Creatinine 0.64, Estim Creat Clear Calc 38.67, Est GFR (MDRD) Af Amer 119, Est GFR (MDRD) Non-Af 99, BUN/Creatinine Ratio 11.0, Glucose 96, Calcium 8.7 09/23/22 14:23: B-Natriuretic Peptide 1903.1 H 09/23/22 14:23: Phosphorus 2.8, Magnesium 2.2, Total Bilirubin 0.70, Direct Bilirubin 0.29, AST 29, ALT 16, Alkaline Phosphatase 92, Total Protein 7.0, Albumin 3.0 L, Globulin 4.0, TSH 0.94 09/23/22 14:23: Serum Osmolality 261 L 09/23/22 14:23: Ethyl Alcohol < 3.0 09/23/22 16:00: Lactic Acid 2.0 09/23/22 16:50: PT 14.0, INR 1.1 09/23/22 18:50: Urine Opiates Screen NEGATIVE, Urine Methadone Screen NEGATIVE, Ur Barbiturates Screen NEGATIVE, Ur Phencyclidine Scrn NEGATIVE, Ur Amphetamines Screen NEGATIVE, MDMA (Ecstasy) Screen NEGATIVE, U Benzodiazepines Scrn NEGATIVE, Urine Cocaine Screen NEGATIVE, U Cannabinoids Screen POSITIVE H, Ur Drug Screen Comment 09/23/22 18:50: Urine Color Yellow, Urine Clarity Clear, Urine pH 6.5, Ur Specific [place] 1.005, Urine Protein 100 H, Urine Glucose (UA) Normal, Urine Ketones 15 H, Urine Occult Blood 25 H, Urine Nitrite Positive H, Urine Bilirubin Negative, Urine Urobilinogen Normal, Ur Leukocyte Esterase 500 H, Urine RBC 0 SEEN, Urine WBC 0-5 SEEN, Ur Squamous Epith Cells 0 SEEN, Urine Bacteria 0 SEEN, Urine Mucus 0 SEEN 09/23/22 18:50: Urine Osmolality 160, Ur Random Sodium 28, Urine Creatinine 14.90, Urine Potassium 20.0, Urine Chloride 29, Urine Urea Nitrogen 140 09/23/22 21:00: Lactic Acid 2.0 09/24/22 06:19: WBC 5.8, RBC 3.19 L, Hgb 11.0 L, Hct 32.0 L, MCV 100.3 H, MCH 34.5 H, MCHC 34.4, RDW Std Deviation 45.2 H, RDW Coeff of [place] 12.3, Plt Count 192, MPV 8.7, Immature Gran % (Auto) 0.500, Neut % (Auto) 80.9 H, Lymph % (Auto) 10.9 L, [place] % (Auto) 7.5, Eos % (Auto) 0.0, Baso % (Auto) 0.2, Absolute Neuts (auto) 4.7, Absolute Lymphs (auto) 0.63 L, Nucleated RBC % 0 09/24/22 06:19: Sodium 131 L, Potassium 4.1, Chloride 100, Carbon Dioxide 21.0, Anion Gap 10, BUN 10, Creatinine 0.67, Estim Creat Clear Calc 38.68, Est GFR (MDRD) Af Amer 113, Est GFR (MDRD) Non-Af 93, BUN/Creatinine Ratio 15.0, Glucose 122 H, Calcium 8.9, Total Bilirubin 0.50, AST 24, ALT 14, Alkaline Phosphatase 77, Total Protein 6.4, Albumin 2.6 L, Globulin 3.8, Albumin/Globulin Ratio 0.7 L , Free T4 1.33 Micro: Microbiology 09/23/22 18:15 Nasal Secretion SARS-CoV-2 Antigen (Rapid) - Final 09/23/22 18:00 Mucosa - Nasopharyngeal Respiratory Panel (PCR) - Final 09/23/22 18:50 Urine, Clean Catch Legionella Antigen - Final 09/23/22 18:50 Urine, Clean Catch Streptococcus pneumoniae Antigen (M - Final Radiography Diagnostic Testing: Radiology Impression Chest X-Ray 09/23/22 14:03 IMPRESSION: Patchy bibasilar airspace disease with probable left pleural effusion. Findings suspicious for pneumonia. Recommend short-term follow-up to resolution. 1.7 cm nodule in periphery of left midlung field. Recommend follow-up chest CT with contrast to exclude pulmonary parenchymal nodule and possible neoplasia. Electronically Signed: Corey Olguin MD at 15:17 EDT , Physical Exam Narrative General: Alert, oriented, thin, no apparent distress HEENT: Atraumatic, normocephalic Eyes: Anicteric, normal conjunctiva, extraocular movements grossly intact Neck: Supple Respiratory: Improving air movement, normal respiratory effort Cardiovascular: Regular rate GI: Soft, nontender, nondistended Extremities: No edema, very thin legs Musculoskeletal: Moving all extremities Neuro: No overt focal neurological deficits Skin: No rashes appreciated Psych: Cooperative Assessment & Plan Assessment/Plan (1) Pneumonia: (2) Elevated brain natriuretic peptide (BNP) level: (3) Hypertensive urgency: PLAN: Plan #Shortness of breath, likely 2/2 CAP but cannot r/o component of HF -Imaging: Chest x-ray with patchy bibasilar airspace disease concerning for pneumonia -DuoNebs and as needed albuterol -Sputum culture, COVID and flu, respiratory panel -Urine antigens -Mucinex, I/S -Rocephin and azithromycin -Denies history of COPD but has long smoking history and previous x-ray with flattening of the diaphragm and suggestive of hyperinflation, no wheezing and with infiltrate suspect pneumonia over copd exacerbation -Did have BNP of 1900 but does not appear clinically overloaded, possible slight left-sided pleural effusion seen on chest x-ray but if present is minimal on available films, does have the history of shortness of breath lying flat but no increase with exertion and none on exam -I's and O's, daily weights -We will obtain echo -Low threshold to diurese if any respiratory compromise that she was receiving fluids in the ED -09/24: Improving with antibiotics and breathing treatments, suspect presentation and elevated BNP secondary to underlying infection but awaiting echo. Sputum culture pending, urine antigens negative #Density in left midlung field -Chest x-ray with 1.7 cm nodule in periphery of left mid field of lung and recommended follow-up with CT -We will order CT to better characterize and feel it is appropriate to perform this inpatient given her hyponatremia with lung nodule as well as remaining slight diagnostic uncertainty with diagnosis of CAP but difficulty ruling out pulmonary edema #Hypertensive urgency and subsequent hypotension?resolved -Systolic over 200 in the ED -Received dose of hydralazine and extra dose of metoprolol in ED and systolic fell into the 90s -Monitor BP closely, hold home antihypertensives at this time until blood pressure begins to recover -09/24: BP stabilized and has been elevated, will resume home amlodipine low-dose and metoprolol and can further titrate #Chronic hyponatremia -Currently 126, has previous values ranging from 117 with highest sodium recorded of 133 in various ranges in between -Is not symptomatic -We will obtain urine studies -09/24: Likely SIADH given her sodium of 126, low serum osmolality of 261 with a urine osmolality of 160 and a urine sodium of 28. Today sodium significantly improved, mental status stable. Patient reports drinking alcohol frequently with relatively poor p.o. intake chronically (though feels she has been eating slightly better lately but based on her description this is the best 1 meal a day) and is very thin may have a component of low solute. Given poor p.o. intake as with alcohol use, favor increasing solute and following sodium as an outpatient over strict fluid restriction especially given patient asymptomatic and corrected quickly. In regards to underlying etiology she does not appear fluid overloaded and suspect elevated BNP secondary to infection more so than heart failure exacerbation given her presentation though BNP was significantly elevated. TSH and free T4 within normal limits and kidney function at baseline. Did have a 1.7 cm nodule in the periphery of left mid lung field on chest x-ray though ultimately need follow-up CT, will order Noncon CT scan. Of note however she has been hyponatremic since her first labs here back in 2017 and she did have a chest x-ray in November 2019 which did not show the lesion so lung cancer causing SIADH is certainly a possibility but lower on the differential #Hypokalemia -Replaced #Alcohol use disorder - We will begin CIWA every 4 for 24 hours, then every 6 for 24 hours, then every 12 until discharge -prn ativan coverage -Begin thiamine and folic acid supplementation -EtOH and drug screen will be obtained -09/24: EtOH negative, UDS only positive for cannabinoids #Tobacco use -Advise cessation -Nicotine patch ordered #DVT ppx: Lovenox subq Linsey Crystal MD Time spent in the patient's overall evaluation,decision-making process, review of diagnostic data, adjustment of management, discussion with other providers, nursing nursing and ancillary staff involved in patient's care documentation, 37 Minutes Charges/Coding Visit Charges Inpatient E&M: 02758 Subs Hosp L3
--- NOTE | 2022-09-24 12:00 | CT_ITS ---
STUDY: CT CHEST WITHOUT CONTRAST REASON FOR EXAM: Female, 67 years old. Pulmonary nodule on x-ray and [facility] RADIATION DOSAGE (If Supplied By Facility): CTDIvol = ( 6.57 ) mGy, DLP = ( 226.50 ) mGycm TECHNIQUE: Transaxial imaging was performed without the administration of intravenous contrast material. Multiplanar coronal and sagittal images were reformatted. Individualized dose optimization techniques were used for this CT. COMPARISON: Comparison is made with prior chest radiograph dated September 23, 2022. FINDINGS: CHEST There is a 1.5 cm x 2.4 cm spiculated mass in the peripheral aspect of the left lower lobe adjacent to the left major fissure. A neoplastic process should be ruled out. Small bilateral pleural effusions slightly greater on the right side. Small bulla are seen in both lungs. Dominant bulla are also seen in both lower lobes worse on the right side. There are calcifications of the coronary arteries. Calcification of the mitral valve annulus. There are multiple small lymph nodes within the mediastinum, which are normal in size and morphology most compatible with reactive lymph hyperplasia. Normal hilar regions. Normal unenhanced pulmonary arteries. There is atherosclerotic calcification of the aortic arch with tortuosity and elongation of the aortic arch and descending thoracic aorta. There are multi-level degenerative changes of the thoracic spine. Atrophy of the left kidney. CT/Chest without Contrast IMPRESSION: 1.57 x 2.4 cm testicular mass in the peripheral lateral aspect of the left lower lobe adjacent to the left major fissure. A neoplastic process should BE ruled out. Bilateral bullous formation worse in the lower lobes. Small bilateral pleural effusions slightly greater on the right side. Electronically Signed: Devendra Foley MD at 12:34 EDT ,
[2022-09-24] MEDS: Metoprolol(XL)Succ 50 MG Tablet PO (13:50)
[2022-09-24] MEDS: amLODIPine 2.5 MG Tablet PO (13:50)
[2022-09-24] MEDS: Furosemide 20 MG/2 ML VIAL 10 MG IV (17:18)
[2022-09-24] MEDS: Aspirin E.C. 81 MG Tablet PO (21:13)
[2022-09-24] MEDS: Atorvastatin Calcium 20 MG Tablet PO (21:13)
[2022-09-25 03:15] VITALS: BP 160/57; PULSE 70; RESP 18; TEMP 36.5; O2SAT 94
--- NOTE | 2022-09-25 03:56 | PCM.PN.BLA ---
Physical Exam Narrative Patient with A-fib on EKG. Recent TSH, potassium and magnesium normal. Patient had echocardiogram on 09/23/2022. CMP is pending a.m. Will check magnesium. Will discontinue prophylactic heparin and put patient on therapeutic Lovenox for high [id number] score.
[2022-09-25] MEDS: Enoxaparin 60 MG/0.6 ML Syringe 45 MG SC (05:19)
[2022-09-25 05:24] VITALS: BP 150/55
[2022-09-25 05:51] VITALS: BMI 19.4
--- NOTE | 2022-09-25 05:56 | EKG12_ITS ---
Test Reason : RYTHM CHANGE Blood Pressure : / mmHG Vent. Rate : 071 BPM Atrial Rate : 000 BPM P-R Int : 000 ms QRS Dur : 076 ms QT Int : 390 ms P-R-T Axes : 000 060 235 degrees QTc Int : 423 ms Atrial fibrillation Minimal voltage criteria for LVH, may be normal variant ( Sokolow-Donaldson ) ST & T wave abnormality, consider inferior ischemia ST & T wave abnormality, consider anterolateral ischemia Abnormal ECG When compared with ECG of 23-SEP-2022 14:27, Atrial fibrillation has replaced Sinus rhythm Inverted T waves have replaced nonspecific T wave abnormality in Inferior leads Confirmed by JUDE MOY, RONY ([id number]), research editor SANTOS ROBERTO ([id number]) on 09/26/2022 9:44:02 AM Referred By: MICHAEL Confirmed By:RONY ROQUE MD
[2022-09-25 06:54] LABS: Absolute Lymphocyte Count 1.77 X10^3/uL (0.83-4.51); Absolute Neutrophil Count 3.4 X10^3/uL (2.0-7.7); Basophil# 0.03 X10^3/uL; Basophil% 0.5 % (0-1); Eosinophil# 0.01 X10^3/uL; Eosinophils% 0.2 % (0-5); Hematocrit 31.3 % (37-47); Hemoglobin 10.4 g/dL (12.0-15.0); Lymphocyte # 1.77 X10^3/ul (0.83-4.51); Lymphocyte % 29.4 % (19-41); Mean Corp Hgb Conc 33.2 g/dL (32-36); Mean Corpuscular Hgb 33.8 pg (27.0-32.0); Mean Corpuscular Volume 101.6 fL (81-99); Mean Platelet Vol. 8.8 fl (6.2-12.0); Monocyte# 0.83 X10^3/uL; Monocyte% 13.8 % (0-10); NRBC Flagged by Analyzer 0 % (0-5); Neutrophil # 3.37 X10^3/uL (2.7-7.7); Neutrophil % 55.8 % (47-70); Platelet Count 204 K/mm3 (150-450); RBC Distribution Width CV 12.5 % (11.6-14.6); RBC Distribution Width SD 46.9 fl (35.1-43.9); Red Blood Count 3.08 M/mm3 (4.2-5.4)
[2022-09-25 07:31] LABS: ALB/GLOB Ratio 0.8 RATIO (0.9-2.4); AST(SGOT) 23 U/L (15-37); Alanine Aminotransfer ALT/SGPT 16 U/L (13-56); Albumin, Serum 2.6 g/dL (3.2-5.0); Alkaline Phosphatase 69 U/L (45-117); Anion Gap 6 (5-15); BUN 9 mg/dL (7-18); BUN/Creat Ratio 14.2 RATIO (10-20); Calcium,Total 8.5 mg/dL (8.5-10.1); Chloride 103 mmol/L (98-107); Creatinine, Serum 0.63 mg/dL (0.55-1.02); EST Glomerular Filtration Rate 99 mL/min (>60); Est Glom Filt Rate - Afr Amer 120 mL/min (>60); Estimated Creatinine Clearance 38.34 ml/min; Globulin 3.2 g/dL (2.2-4.2); Glucose 102 mg/dL (74-106); Magnesium 1.7 mg/dL (1.6-2.6); Potassium 3.1 mmol/L (3.5-5.1); Protein, Total 5.8 g/dL (6.4-8.2); Sodium Level 133 mmol/L (136-145)
[2022-09-25 09:38] VITALS: BP 114/103; PULSE 73; RESP 18; TEMP 36.7; O2SAT 95
[2022-09-25 09:40] VITALS: O2SAT 95
[2022-09-25] MEDS: Potassium Chloride Oral Tablet 20 MEQ 40 MEQ PO (09:44)
[2022-09-25] MEDS: 0.9% Saline Lock 10 ML Syringe IV ×2 (09:44→09:53)
[2022-09-25 09:45] VITALS: BP 114/103; PULSE 73
[2022-09-25] MEDS: Cyanocobalamin 500 MCG Tablet 1000 MCG PO (09:45)
[2022-09-25] MEDS: Folic Acid 1 MG Tablet PO (09:45)
[2022-09-25] MEDS: amLODIPine 5 MG Tablet PO (09:45)
[2022-09-25] MEDS: Metoprolol(XL)Succ 50 MG Tablet PO (09:45)
[2022-09-25] MEDS: guaiFENesin 1,200 MG Tablet 1200 MG PO (09:45)
[2022-09-25] MEDS: Potassium Chloride Oral Tablet 10 MEQ PO (09:45)
--- NOTE | 2022-09-25 15:12 | EKG12_ITS ---
Test Reason : RHYTHM CHANGE Blood Pressure : / mmHG Vent. Rate : 076 BPM Atrial Rate : 000 BPM P-R Int : 000 ms QRS Dur : 072 ms QT Int : 394 ms P-R-T Axes : 000 039 205 degrees QTc Int : [address] & T wave abnormality, consider inferior ischemia ST & T wave abnormality, consider anterolateral ischemia Abnormal ECG When compared with ECG of 25-SEP-2022 03:26, MANUAL COMPARISON REQUIRED, DATA IS UNCONFIRMED Confirmed by JUDE MOY, RONY ([id number]), writer editor SANTOS ROBERTO ([id number]) on 09/27/2022 9:31:44 AM Referred By: Confirmed By:RONY ROQUE MD
--- NOTE | 2022-09-25 16:04 | DS.PCM_ITS ---
Providers Date of Admission: 09/23/22 Date of Discharge: 09/25/22 Primary Care Physician: JASON Bangura Reason For Visit: HYPONATREMIA, HYPOTENSION Diagnosis Discharge Diagnosis (1) Pneumonia: Status: Acute Code(s): J18.9 - Pneumonia, unspecified organism (2) Elevated brain natriuretic peptide (BNP) level: Status: Acute Code(s): R79.89 - Other specified abnormal findings of blood chemistry (3) Hypertensive urgency: Status: Acute Code(s): I16.0 - Hypertensive urgency (4) Atrial fibrillation: Status: Acute Code(s): I48.91 - Unspecified atrial fibrillation (5) (HFpEF) heart failure with preserved ejection fraction: Status: Acute Code(s): I50.30 - Unspecified diastolic (congestive) heart failure Plan #CAP #chronic HFpEF #Afib #Density in left midlung field #Hypertensive urgency and subsequent hypotension?resolved #Chronic HTN #Chronic hyponatremia #Hypokalemia -Replaced #Alcohol use disorder #Tobacco use Medications at Discharge Home Medications aspirin 81 mg tablet,delayed release 81 mg PO DAILY@1999 HEALTH [employer]INTENANCE 12/16/19 magnesium oxide 500 mg capsule 500 mg PO DAILY supplement 01/04/20 amlodipine 2.5 mg tablet 2.5 mg PO DAILY BP #90 tabs 12/14/21 atorvastatin 20 mg tablet 20 mg PO QHS CHOLESTEROL #90 tabs 12/14/21 enalapril maleate 20 mg tablet 20 mg PO DAILY blood pressure #90 tabs 12/14/21 metoprolol succinate 50 mg tablet,extended release 24 hr 50 mg PO DAILY HEART #90 tabs 12/14/21 potassium chloride 10 mEq tablet,extended release 10 meq PO DAILY supplement 09/23/22 albuterol sulfate 90 mcg/actuation aerosol inhaler 2 puff inhalation Q6H PRN shortness of breath or wheezing #8.5 grams 09/25/22 amoxicillin 875 mg-potassium clavulanate 125 mg tablet 1 tab PO BID 3 days #6 tabs 09/25/22 apixaban 5 mg tablet (Eliquis) 5 mg PO BID 30 days #60 tabs 09/25/22 Hospital Course Summary of Care Provided Minutes Spent on Discharge: 36 Hospital Course: PostLINDA JÚNIOR, is a 67-year-old female with a history of tobacco use, HTN, alcohol use disorder, and a right carotid blockage chronically presented to [facility] 09/23/2022 with increasing orthopnea at bedtime for several days.? In the ED he was found to have systolic blood pressure over 200 and was given extra dose of metoprolol which plummeted systolic pressures in the 90s but she maintained her mentation.? Additionally she was found to have a BNP of 1900 but had a chest x-ray with patchy bibasilar airspace disease which queried pneumonia and also 1.7 cm nodule peripheral left midlung field. She was started on Rocephin and azithromycin and hospitalist consulted for admission. Due to her elevated BNP she had echocardiogram which demonstrated EF of 65% and stage III diastolic dysfunction with PASP of 47. She did not appear overloaded however peripherally or vascularly and after starting breathing treatments and antibiotics she did not have orthopnea. She was continued on breathing treatments and antibiotics and endorsed significant improvement and was not diuresed. Suspect elevated BNP was due to combination of infection as well as her diastolic dysfunction chronically and elevated pulmonary pressures but will need daily weights moving forward to assess for starting diuretics or alternative medication. Can consider starting SGLT2 as well. During admission chest x-ray with 1.7 cm nodule in periphery of left mid field of lung and recommended follow-up with CT which showed 1.5 cm x 2.4 cm spiculated mass in the peripheral aspect of the left lower lobe adjacent to the left major fissure. Discussed this with the patient and she verbalized understanding. Her blood pressure vacillated but she did not have any further episodes of hypotension or further episodes of hypertensive urgency. On admission she did endorse frequent alcohol use and was on CIWA with as needed coverage but did not have any signs or symptoms of withdrawal. Did not want any further resources or assistance with alcohol cessation. In regards to her hyponatremia it appears to be chronic, it was 126 on admission and was not symptomatic. Likely SIADH given her sodium of 126, low serum osmolality of 261 with a urine osmolality of 160 and a urine sodium of 28 but do suspect component of low solute as well. Did not appear to be related to volume overload and no problems with kidney function and TSH is within normal limits. She did have mass seen on CT however she has been hyponatremic since her first labs here back in 2017 and she did have a chest x-ray in November 2019 which did not show the lesion so lung cancer causing SIADH is certainly a possibility but lower on the differential. Lastly she was found to have A-fib during her admission, no RVR, TSH within normal limits and echo findings noted. Discussed risks and benefits of anticoagulation and she was agreeable. Will discharge on home metoprolol and addition of Eliquis. On day of discharge feeling much better with no additional complaints. Discharge instructions as follows: DISCHARGE INSTRUCTIONS PLEASE READ *Please take this with you to your next doctors appointment* -You will be discharged on Augmentin 875 mg twice daily starting 09/26 and you will take this for 3 days -You also be discharged with a prescription for an albuterol inhaler to use as needed -You are also found to have an irregular heartbeat, atrial fibrillation, and after we discussed it you elected to begin anticoagulation.? We will send in a prescription for Eliquis.? You will take 5 mg twice daily.? Please follow-up with your primary care physician in the event he may need referred to cardiology or have further work-up pursued -Any new prescriptions have been sent to your preferred pharmacy on file -Would recommend lab work (BMP) to check your sodium in 2 to 3 days through your primary care physician's office as you have a chronically low sodium though this has improved during your hospitalization.? Please call their office upon discharge to obtain order for lab work. -Weigh yourself every day. A sudden weight gain can mean you are retaining fluid. Weigh yourself at the same time of day and in the same kind of clothes. Ideally, weigh yourself first thing in the morning after you empty your bladder, but before you eat breakfast. -Please call your physician if your weight goes up by more than 2 pounds in 1 day or 5 pounds in 1 week. This can be a sign that you are retaining more fluid than you should be. -As we discussed prior to discharge you were also found to have a spot on your left lower lung that will need further imaging and work-up to rule out cancer.? Please discuss this with your primary care physician as they may order additional studies or images or refer you for potential biopsy -Strongly advised alcohol cessation. Please call [facility] located at [address] [place] [id number] (ph [phone]) if you are interested in further resources -Please call your primary care provider's office upon discharge to schedule a ho spital follow up within 1 week. -For any concerning signs or symptoms please call 911 or proceed to the nearest emergency department Physical Exam Narrative General: Alert, oriented, thin, no apparent distress HEENT: Atraumatic, normocephalic Eyes: Anicteric, normal conjunctiva, extraocular movements grossly intact Neck: Supple Respiratory: Improving air movement, normal respiratory effort Cardiovascular: Regular rate GI: Soft, nontender, nondistended Extremities: No edema, very thin legs Musculoskeletal: Moving all extremities Neuro: No overt focal neurological deficits Skin: No rashes appreciated Psych: Cooperative Medical Records Data Medical Nutrition Assessment Dietitian: Malnutrition Criteria Met Start: 09/24/22 10:12 Freq: Status: Active Protocol: Document 09/24/22 10:12 AG (Rec: 09/24/22 10:12 [id number]) Nutrition Malnutrition Evidence of Malnutrition Exists Yes Malnutrition (moderate): Acute Illness/Injury Evidenced By Suboptimal Energy Intake ( Moderate),Weight Loss ( Moderate),Physical Changes ( Mild) Clinical Problem Acute Disease or Injury Related Malnutrition Etiology moderate, acute malnutrition related to inadequate energy intake Signs/Symptoms as evidenced by unintentional wt loss of 2.5#/2.4% <2 weeks; estimated PO intake meeting < 75% of estimated energy needs > 1 week; BMI 19.6; mild muscle wasting/fat loss per physical exam Status Active Problem Recommendation Dietitian Recommendations/Changes continue regular diet as tolerated; will offer 240mL ensure clear TID w/ meals for additional protein/calories if consumed. Will monitor sodium levels- may need to consider fluid restriction if hyponatremia persists. Weight / BMI Weight Weight: 45.1 kg Body Mass Index (BMI) 19.4 ABG / Lab / Microbiology Data Result Diagrams: 09/25/22 05:53 09/25/22 05:53 Laboratory: Laboratory Results - last 24 hr 09/25/22 05:53: WBC 6.0, RBC 3.08 L, Hgb 10.4 L, Hct 31.3 L, MCV 101.6 H, MCH 33.8 H, MCHC 33.2, RDW Std Deviation 46.9 H, RDW Coeff of Brooklynn 12.5, Plt Count 204, MPV 8.8, Immature Gran % (Auto) 0.300, Neut % (Auto) 55.8, Lymph % (Auto) 29.4, Rolette % (Auto) 13.8 H, Eos % (Auto) 0.2, Baso % (Auto) 0.5, Absolute Neuts (auto) 3.4, Absolute Lymphs (auto) 1.77, Nucleated RBC % 0 09/25/22 05:53: Sodium 133 L, Potassium 3.1 L, Chloride 103, Carbon Dioxide 24.0, Anion Gap 6, BUN 9, Creatinine 0.63, Estim Creat Clear Calc 38.34, Est GFR (MDRD) Af Amer 120, Est GFR (MDRD) Non-Af 99, BUN/Creatinine Ratio 14.2, Glucose 102, Calcium 8.5, Total Bilirubin 0.40, AST 23, ALT 16, Alkaline Phosphatase 69, Total Protein 5.8 L, Albumin 2.6 L, Globulin 3.2, Albumin/Globulin Ratio 0.8 L 09/25/22 05:53: Magnesium 1.7 Microbiology: Microbiology 09/24/22 09:10 Sputum, Expectorated/Coughed Gram Stain - Final 09/23/22 18:15 Nasal Secretion SARS-CoV-2 Antigen (Rapid) - Final 09/23/22 18:00 Mucosa - Nasopharyngeal Respiratory Panel (PCR) - Final 09/23/22 18:50 Urine, Clean Catch Legionella Antigen - Final 09/23/22 18:50 Urine, Clean Catch Streptococcus pneumoniae Antigen (M - Final D/C Instructions Discharge Diet: - (-DASH diet, 3000 mg sodium restriction, 2 L fluid restriction) Meaningful Use Info Meaningful Use Diagnoses (Choose all that apply): None applicable Discharge Plan Admission Admit Date/Time: 09/23/22 16:26 Primary Reason for Your Visit: Shortness of breath when laying flat Attending Provider: Linsey Crystal Primary Care Provider: Radha Zepeda AGENCY APPOINTMENTS SUPERVISOR Instructions Patient Instructions: DASH Plan Eat Heart Healthy Food, AFib Dc, Eating Heart- Healthy Foods, AFib, ED Pneumonia (Adult) Additional Instructions / Restrictions: DISCHARGE INSTRUCTIONS PLEASE READ *Please take this with you to your next doctors appointment* -You will be discharged on Augmentin 875 mg twice daily starting 6/7 and you will take this for 3 days -You also be discharged with a prescription for an albuterol inhaler to use as needed -You are also found to have an irregular heartbeat, atrial fibrillation, and after we discussed it you elected to begin anticoagulation. We will send in a prescription for Eliquis. You will take 5 mg twice daily. Please follow-up with your primary care physician in the event he may need referred to cardiology or have further work-up pursued -Any new prescriptions have been sent to your preferred pharmacy on file -Would recommend lab work (BMP) to check your sodium in 2 to 3 days through your primary care physician's office as you have a chronically low sodium though this has improved during your hospitalization. Please call their office upon disc harge to obtain order for lab work. -Weigh yourself every day. A sudden weight gain can mean you are retaining fluid. Weigh yourself at the same time of day and in the same kind of clothes. Ideally, weigh yourself first thing in the morning after you empty your bladder, but before you eat breakfast. -Please call your physician if your weight goes up by more than 2 pounds in 1 day or 5 pounds in 1 week. This can be a sign that you are retaining more fluid than you should be. -As we discussed prior to discharge you were also found to have a spot on your left lower lung that will need further imaging and work-up to rule out cancer. Please discuss this with your primary care physician as they may order additional studies or images or refer you for potential biopsy -Strongly advised alcohol cessation. Please call [facility] located at [address] [place] [id number] (ph [phone]) if you are interested in further resources -Please call your primary care provider's office upon discharge to schedule a hospital follow up within 1 week. -For any concerning signs or symptoms please call 911 or proceed to the nearest emergency department Discharge Orders/Prescriptions Prescriptions: New albuterol sulfate 90 mcg/actuation HFA aerosol inhaler 2 puff inhalation Q6H PRN (Reason: shortness of breath or wheezing) Qty: 8.5 0RF Eliquis 5 mg tablet 5 mg PO BID 30 Days Qty: 60 0RF amoxicillin-pot clavulanate 875-125 mg tablet 1 tab PO BID 3 Days Qty: 6 0RF Continued magnesium oxide 500 mg capsule 500 mg PO DAILY amlodipine 2.5 mg tablet 2.5 mg PO DAILY Qty: 90 3RF atorvastatin 20 mg tablet 20 mg PO QHS Qty: 90 3RF enalapril maleate 20 mg tablet 20 mg PO DAILY Qty: 90 3RF metoprolol succinate 50 mg tablet extended release 24 hr 50 mg PO DAILY Qty: 90 3RF aspirin 81 MG tablet,delayed release (DR/EC) 81 mg PO DAILY@2000 potassium chloride 10 mEq tablet extended release 10 meq PO DAILY Referrals / Follow Up: Care Physician,No Primary [Non-Staff] - Radha Zepeda AGENCY APPOINTMENTS SUPERVISOR, AGENCY APPOINTMENTS SUPERVISOR-C [Primary Care Provider] - Within 1 Week Disposition Disposition (needs filled in before D/C Order can be placed): Home, Self Care Charges/Coding Visit Charges Inpatient E&M: 19272 Disch Hosp >30min
--- NOTE | 2022-09-25 16:11 | DCINST_ITS ---
Discharge Instructions Diet Discharge Diet: - (-DASH diet, 3000 mg sodium restriction, 2 L fluid restriction) Activity Discharge Activity: Return to Normal Activity Follow Up Care Test Results: Test results from this visit will be discussed in further detail at your follow- up appointment, if applicable. Discharge Plan Admission Admit Date/Time: 09/23/22 16:26 Primary Reason for Your Visit: Shortness of breath when laying flat Attending Provider: Linsey Crystal Primary Care Provider: Radha Zepdea YOGA INSTRUCTOR Instructions Patient Instructions: DASH Plan Eat Heart Healthy Food, AFib Dc, Eating Heart- Healthy Foods, AFib, ED Pneumonia (Adult) Additional Instructions / Restrictions: DISCHARGE INSTRUCTIONS PLEASE READ *Please take this with you to your next doctors appointment* -You will be discharged on Augmentin 875 mg twice daily starting 09/26 and you wi ll take this for 3 days -You also be discharged with a prescription for an albuterol inhaler to use as needed -You are also found to have an irregular heartbeat, atrial fibrillation, and after we discussed it you elected to begin anticoagulation. We will send in a prescription for Eliquis. You will take 5 mg twice daily. Please follow-up with your primary care physician in the event he may need referred to cardiology or have further work-up pursued -Any new prescriptions have been sent to your preferred pharmacy on file -Would recommend lab work (BMP) to check your sodium in 2 to 3 days through your primary care physician's office as you have a chronically low sodium though this has improved during your hospitalization. Please call their office upon discharge to obtain order for lab work. -Weigh yourself every day. A sudden weight gain can mean you are retaining fluid. Weigh yourself at the same time of day and in the same kind of clothes. Ideally, weigh yourself first thing in the morning after you empty your bladder, but before you eat breakfast. -Please call your physician if your weight goes up by more than 2 pounds in 1 day or 5 pounds in 1 week. This can be a sign that you are retaining more fluid than you should be. -As we discussed prior to discharge you were also found to have a spot on your left lower lung that will need further imaging and work-up to rule out cancer. Please discuss this with your primary care physician as they may order additional studies or images or refer you for potential biopsy -Strongly advised alcohol cessation. Please call [facility] located at [address] [place] [phone] (ph [phone]) if you are interested in further resources -Please call your primary care provider's office upon discharge to schedule a hospital follow up within 1 week. -For any concerning signs or symptoms please call 911 or proceed to the nearest emergency department Discharge Orders/Prescriptions Prescriptions: New albuterol sulfate 90 mcg/actuation HFA aerosol inhaler 2 puff inhalation Q6H PRN (Reason: shortness of breath or wheezing) Qty: 8.5 0RF Eliquis 5 mg tablet 5 mg PO BID 30 Days Qty: 60 0RF amoxicillin-pot clavulanate 875-125 mg tablet 1 tab PO BID 3 Days Qty: 6 0RF Continued magnesium oxide 500 mg capsule 500 mg PO DAILY amlodipine 2.5 mg tablet 2.5 mg PO DAILY Qty: 90 3RF atorvastatin 20 mg tablet 20 mg PO QHS Qty: 90 3RF enalapril maleate 20 mg tablet 20 mg PO DAILY Qty: 90 3RF metoprolol succinate 50 mg tablet extended release 24 hr 50 mg PO DAILY Qty: 90 3RF aspirin 81 MG tablet,delayed release (DR/EC) 81 mg PO DAILY@2000 potassium chloride 10 mEq tablet extended release 10 meq PO DAILY Referrals / Follow Up: Care Physician,No Primary [Non-Staff] - Radha Zepeda NP, YOGA INSTRUCTOR-C [Primary Care Provider] - Within 1 Week Disposition Disposition (needs filled in before D/C Order can be placed): Home, Self Care
[2022-09-25 16:30] VITALS: BP 164/73; PULSE 79; RESP 20; TEMP 36.7; O2SAT 95
--- NOTE | 2022-09-25 16:52 | CASEMGMT ---
ANDREIA SINGLETARY called [facility] to verify cost. Patient has deductible that needs to met and cost would be $120.06. ANDREIA SINGLETARY udpated patient and 30 day [employer] savings card provided to patient. Patient had no further questions or concerns at this time.
== END 2022-09-25 17:52 | disposition home or self-care (01) | DRG 194 ==
LOC: ED 16:03 → PCU 16:40
PROVIDERS: Hospitalist; Admitting Provider Internal Medicine; Emergency Provider Emergency Medicine; PCP Nurse Practitioner; Visit Provider Internal Medicine
DX: J18.9 Pneumonia, unspecified organism (principal); E22.2 Syndrome of inappropriate secretion of antidiuretic hormone; E44.0 Moderate protein-calorie malnutrition; I50.32 Chronic diastolic (congestive) heart failure; Z68.1 Body mass index [BMI] 19.9 or less, adult; I11.0 Hypertensive heart disease with heart failure; I95.9 Hypotension, unspecified; I48.91 Unspecified atrial fibrillation; E78.5 Hyperlipidemia, unspecified; I16.0 Hypertensive urgency; E87.6 Hypokalemia; F17.210 Nicotine dependence, cigarettes, uncomplicated; R91.1 Solitary pulmonary nodule; Z20.822 Contact with and (suspected) exposure to COVID-19; Z79.82 Long term (current) use of aspirin; Z79.899 Other long term (current) drug therapy
CPT/HCPCS: 36415; 71045; 71250; 80048; 80053; 80076; 80307; 81001; 82077; 82436; 82570; 83605; 83735; 83880; 83930; 83935; 84100; 84133; 84300; 84439; 84443; 84540; 85025; 85610; 87040; 87070; 87205; 87426; 87449; 87633; 93005; 93306; 94640; 94668; 97802; 99284; J7040; Q9957; A4216; C8929; J0696; J1940; J3490

== ENCOUNTER → 2023-01-08 | Outpatient (CLI) | payer MEDICARE, SELFPAY ==
[2023-01-08 21:03] LABS: Absolute Lymphocyte Count 1.83 X10^3/uL (0.83-4.51); Absolute Neutrophil Count 2.8 X10^3/uL (2.0-7.7); Basophil# 0.06 X10^3/uL; Basophil% 1.1 % (0-1); Eosinophil# 0.08 X10^3/uL; Eosinophils% 1.5 % (0-5); Hematocrit 40.1 % (37-47); Hemoglobin 13.8 g/dL (12.0-15.0); Lymphocyte # 1.83 X10^3/ul (0.83-4.51); Lymphocyte % 34.2 % (19-41); Mean Corp Hgb Conc 34.4 g/dL (32-36); Mean Corpuscular Hgb 34.8 pg (27.0-32.0); Mean Corpuscular Volume 101.3 fL (81-99); Mean Platelet Vol. 9.2 fl (6.2-12.0); Monocyte# 0.55 X10^3/uL; Monocyte% 10.3 % (0-10); NRBC Flagged by Analyzer 0 % (0-5); Neutrophil # 2.82 X10^3/uL (2.7-7.7); Neutrophil % 52.7 % (47-70); Platelet Count 182 K/mm3 (150-450); RBC Distribution Width CV 12.1 % (11.6-14.6); RBC Distribution Width SD 45.8 fl (35.1-43.9); Red Blood Count 3.96 M/mm3 (4.2-5.4); White Blood Count 5.4 K/mm3 (4.4-11.0)
[2023-01-08 21:35] LABS: ALB/GLOB Ratio 0.9 RATIO (0.9-2.4); AST(SGOT) 22 U/L (15-37); Alanine Aminotransfer ALT/SGPT 19 U/L (13-56); Albumin, Serum 3.5 g/dL (3.2-5.0); Alkaline Phosphatase 96 U/L (45-117); Anion Gap 9 (5-15); BUN 9 mg/dL (7-18); BUN/Creat Ratio 10.9 RATIO (10-20); Chloride 99 mmol/L (98-107); Cholesterol 152 mg/dL (200); Creatinine, Serum 0.83 mg/dL (0.55-1.02); EST Glomerular Filtration Rate 73 mL/min (>60); Est Glom Filt Rate - Afr Amer 88 mL/min (>60); Globulin 3.8 g/dL (2.2-4.2); Glucose 109 mg/dL (74-106); High Density Lipoprotein 78 mg/dL; Protein, Total 7.3 g/dL (6.4-8.2); Sodium Level 132 mmol/L (136-145); Triglycerides 107 mg/dL; Very Low Density Lipoprotein 21 mg/dL (5-40)
== END | disposition home or self-care (01) ==
PROVIDERS: PCP Nurse Practitioner; Visit Provider Nurse Practitioner
DX: I48.91 Unspecified atrial fibrillation (principal); E43 Unspecified severe protein-calorie malnutrition; I50.30 Unspecified diastolic (congestive) heart failure; I11.0 Hypertensive heart disease with heart failure; E78.5 Hyperlipidemia, unspecified; E87.1 Hypo-osmolality and hyponatremia
CPT/HCPCS: 80053; 80061; 84443; 85025

== ENCOUNTER 2023-12-31 14:59 | Emergency (ER) | payer MEDICARE, SELFPAY ==
[2023-12-31] VITALS (7 sets, daily range): BP systolic 82–206; BP diastolic 54–84; PULSE 69–88; RESP 16–25; TEMP 36.4–36.6; O2SAT 95–99; BMI 19.2
--- NOTE | 2023-12-31 15:22 | EKG12_ITS ---
Test Reason : SOB Blood Pressure : / mmHG Vent. Rate : 067 BPM Atrial Rate : 067 BPM P-R Int : 196 ms QRS Dur : 082 ms QT Int : 450 ms P-R-T Axes : 055 037 154 degrees QTc Int : 475 ms Normal sinus rhythm Moderate voltage criteria for LVH, may be normal variant ( Sokolow-Donaldson , Hua product ) ST & T wave abnormality, consider inferolateral ischemia Prolonged QT Abnormal ECG Confirmed by JUDE MOY, RONY ([id number]), department editor JOHN ARREDONDO ([id number]) on 01/01/2024 1:18:26 PM Referred By: Confirmed By:RONY ROQUE MD
[2023-12-31] MEDS: Ipratropium/Albuterol Sulfate 3 ML AMPUL.NEB INHALATION (15:36)
--- NOTE | 2023-12-31 15:38 | ED.VIS.DYS ---
HPI History of Present Illness Chief Complaint: Shortness of Breath Narrative Narrative: Chief complaint and HPI: Shortness of breath. 68-year-old female with history of atrial fibrillation, HFpEF, HTN, HLD, tobacco abuse presents for evaluation of shortness of breath. Patient states that she woke up this morning short of breath. She states that she is worried that she has pneumonia. She states her brother just recently from pneumonia. She denies any fever, chills, URI symptoms, chest pain, abdominal pain, nausea, vomiting. Denies sick contacts. Patient admits to smoking 1 pack/day. She did smoke today. She denies history of asthma or COPD. She denies any hormone replacement. Denies any recent travel or surgery. Denies any bilateral lower extremity swelling or pain. Denies a history of DVT/PE. Review of systems: See HPI Medications: As listed on the chart Allergies: As listed on the chart PFSH: Per chart Vital signs: As listed on the chart. Reviewed. Physical exam: Gen: A&O x3, NAD Head: Normocephalic, atraumatic Eyes: No sclera icterus, conjunctiva clear ENT: Moist mucous membranes Neck: Trachea midline, No JVD CV: RRR, no murmurs, no peripheral edema Resp: Lungs mildly coarse throughout, no w/r/c GI: Abd soft, non-distended, non-tender, no r/r/g Musc: Full ROM, no deformity Skin: Warm, dry Neuro: Alert, oriented, grossly intact, sensation intact Psych: Cooperative, appropriate mood and affect EKG: Interpreted by me/EM physician: EKG shows normal sinus rhythm. Heart rate is 67. Patient does have ST and T wave abnormalities in V1, V4, V5, V6. This was compared to her previous EKG in September 2022 and is similar in appearance. Repeat EKG at 1812 shows normal sinus rhythm with a heart rate of 70. Again she has the chronic ST and T wave abnormalities in V1, V4, V5, and V6. Diagnostic: Interpreted by me/EM physician: Small pleural effusions, no pneumonia or pneumothorax. Per radiology scarring in both lung bases. PFSH PFSH Medical History (HFpEF) heart failure with preserved ejection fraction Alcohol abuse Atrial fibrillation Elevated brain natriuretic peptide (BNP) level Essential hypertension Hyperlipidemia Hypokalemia Hyponatremia Lung mass Menopausal symptoms Non-rheumatic tricuspid valve insufficiency Occlusion of right carotid artery Pneumonia R carotid 100% block for 20 years Right-sided low back pain with sciatica Smoker Home Medications ?Medication ?Instructions ?Recorded ?Last Taken ?Type aspirin 81 mg tablet,delayed 81 mg PO DAILY@2000 HEALTH 12/16/19 12/14/19 History release MAINTENANCE magnesium oxide 500 mg capsule 500 mg PO DAILY supplement 01/04/20 Unknown History albuterol sulfate 90 mcg/actuation 2 puff inhalation Q6H PRN 09/25/22 Unknown Rx aerosol inhaler shortness of breath or wheezing #8.5 grams potassium chloride 10 mEq 10 meq PO DAILY supplement #90 tabs 10/01/22 Unknown Rx tablet,extended release amlodipine 2.5 mg tablet 2.5 mg PO DAILY BP #90 tabs 01/08/23 Unknown Rx atorvastatin 20 mg tablet 20 mg PO QHS CHOLESTEROL #90 tabs 01/08/23 Unknown Rx enalapril maleate 20 mg tablet 20 mg PO DAILY blood pressure #90 01/08/23 Unknown Rx tabs metoprolol succinate 50 mg 50 mg PO ONCE HEART 01/08/23 Unknown History tablet,extended release 24 hr furosemide 40 mg tablet (Lasix) 40 mg PO QODAY 30 days #15 tabs 12/31/23 Unknown Rx Allergy/AdvReac Type Severity Reaction Status Date / Time No Known Allergies Allergy Verified 12/31/23 15:01 Family History Father Diabetes CAD (coronary artery disease) Brother Diabetes Uncle Cancer Social History Smoking Status: Current every day smoker tobacco type: cigarettes alcohol intake: current alcohol intake frequency: 3 or more drinks per day Alcohol type: beer substance use type: does not use caffeine: Yes Type: coffee Number of servings: 2 EXAM Physical Exam Const Vital Signs: 12/31/23 15:02 Temperature 97.6 F L Temperature Source Temporal Pulse Rate 69 Respiratory Rate 18 Blood Pressure 111/78 Blood Pressure Mean 89 Pulse Ox 99 Oxygen Delivery Method Room Air MDM MDM MDM Narrative Medical decision making narrative: 68-year-old female presents for evaluation of shortness of breath. On physical exam her lungs are mildly coarse bilaterally but no wheezing. Differential diagnosis includes but is not limited to viral illness, COPD, pneumonia, CAD, CHF exacerbation. Low risk for PE given PERC and Wells. Patient is not tachycardic or hypoxic. DuoNeb ordered. Shortness of breath workup/cardiac workup ordered. EKG reviewed. Chest x-ray reviewed. See above. CBC without leukocytosis or anemia. Patient does have new thrombocytopenia with a platelet count of 143. BMP shows baseline hyponatremia of 130. No HAMZAH. Troponin 48. Delta pending. BNP elevated at 2146. Patient is not overtly fluid overloaded on physical exam. BNP is elevated from 09/23 at 1903. On chart review, patient's last echocardiogram shows an EF of 65%. Patient does have stage III diastolic dysfunction. She is not on a diuretic. On reevaluation, patient states her shortness of breath has improved but is mildly still there. She has became more hypertensive. With SBP in the 190s to 200s. Cuff was on the left arm and therefore was switched to the right. On the right arm patient is hypotensive with SBP's in the 80s. This was checked multiple times. Her radial and ulnar pulses on the left are plus 2 out of 4, they are plus 1 out of 4 on the right. Patient denying any chest pain. Denying any back pain. Denying any neurological deficits or numbness or tingling. Normal capillary refill. Patient states that she thinks her blood pressures in her arm are always different however cannot confirm this. Given her shortness of breath and this finding we will get stat CTA chest, pelvis, abdomen to assess for dissection as well as dimer and EKG. Patient's delta troponin 64. Will repeat troponin. D-dimer elevated at 2.26. Again patient has no risk factors for PE other than age according to PERC and Wells. CTA shows normal caliber aorta with no evidence of dissection or aneurysm. Aorta is calcified. She has small bilateral pleural effusions with emphysematous change. Patient is a smoker. No obvious PE. Repeat troponin is stable at 64. Again she is not having any chest pain. Patient's systolic blood pressure in the 170s on the left. Unclear etiology for patient's unequal blood pressure. She is mildly short of breath, I suspect that this is secondary to her mild CHF exacerbation. Given that she follows with [facility]. Fishing Gear Mechanic was consulted and patient was discussed with Dr. Rios. He was updated of the unequal pulses as well with elevated troponin. After discussion, plan is for discharge home on Lasix 40 mg daily with follow-up in their office. Will give one-time Lasix here prior to discharge. Patient was updated of all her results and the plan. She confirmed understanding. She was told to return back to the ED if symptoms change or worsen. She confirmed understanding of the plan. She was made aware that she needs to have further workup of her unequal pulses. She confirmed understanding Impression: 1. Mild CHF exacerbation 2. Shortness of breath 3. Thrombocytopenia Discharge Plan Triage Chief Complaint: Shortness of Breath ED Provider: Bladimir Caballero Dx/Rx/DC Orders Clinical Impression: CHF exacerbation, Shortness of breath Instructions: Heart Failure Prescriptions: New furosemide [Lasix] 40 mg tablet 40 mg PO QODAY 30 Days Qty: 15 0RF No Action magnesium oxide 500 mg capsule 500 mg PO DAILY potassium chloride 10 mEq tablet extended release 10 meq PO DAILY Qty: 90 3RF metoprolol succinate 50 mg tablet extended release 24 hr 50 mg PO ONCE amlodipine 2.5 mg tablet 2.5 mg PO DAILY Qty: 90 3RF atorvastatin 20 mg tablet 20 mg PO QHS Qty: 90 3RF enalapril maleate 20 mg tablet 20 mg PO DAILY Qty: 90 3RF aspirin 81 MG tablet,delayed release (DR/EC) 81 mg PO DAILY@2000 albuterol sulfate 90 mcg/actuation HFA aerosol inhaler 2 puff inhalation Q6H PRN (Reason: shortness of breath or wheezing) Qty: 8.5 0RF Primary Care Provider: Radha Zepeda NP Referrals: Darvin Rios MD [Med Staff - Active Staff] - 3-5 Days Radha Zepeda NP, [employer] [Primary Care Provider] - 3-5 Days Activity Restrictions/Additional Instructions: Return if symptoms worsen or change. Follow-up with cardiology and PCP as soon as possible. Print Language: Indonesian Disposition Disposition: Home, Self Care Discharge Date/Time: 12/31/23 20:25
[2023-12-31 15:47] LABS: Absolute Lymphocyte Count 0.57 X10^3/uL (0.83-4.51); Absolute Neutrophil Count 5.1 X10^3/uL (2.0-7.7); Basophil# 0.02 X10^3/uL; Basophil% 0.3 % (0-1); Eosinophil# 0.01 X10^3/uL; Eosinophils% 0.2 % (0-5); Hematocrit 40.9 % (37-47); Hemoglobin 14.3 g/dL (12.0-15.0); Lymphocyte # 0.57 X10^3/ul (0.83-4.51); Lymphocyte % 9.3 % (19-41); Mean Corpuscular Hgb 34.4 pg (27.0-32.0); Mean Corpuscular Volume 98.3 fL (81-99); Mean Platelet Vol. 8.1 fl (6.2-12.0); Monocyte# 0.39 X10^3/uL; Monocyte% 6.4 % (0-10); NRBC Flagged by Analyzer 0 % (0-5); Neutrophil # 5.13 X10^3/uL (2.7-7.7); Neutrophil % 83.5 % (47-70); POSITIVE DIFFERENTIAL YES; Platelet Count 143 K/mm3 (150-450); RBC Distribution Width CV 11.8 % (11.6-14.6); Red Blood Count 4.16 M/mm3 (4.2-5.4); White Blood Count 6.1 K/mm3 (4.4-11.0)
--- NOTE | 2023-12-31 15:50 | RAD_ITS ---
EXAM: XR CHEST, 2 VIEWS CLINICAL INDICATION: shortness of breath TECHNIQUE: Frontal and lateral views of the chest. COMPARISON: 09/23/2022 FINDINGS: LUNGS AND PLEURAL SPACES: Previously described nodular opacity in the left midlung is not seen on today''s exam. There is scarring in both lung bases. There is blunting of the costophrenic angles may represent trace effusions. No pneumothorax. HEART: Unremarkable. Cardiac silhouette not enlarged. MEDIASTINUM: Central airways and mediastinal contour are unremarkable. BONES/JOINTS: Unremarkable. No acute fracture. SOFT TISSUES: Unremarkable. RAD/Chest PA and Lateral IMPRESSION: Scarring in both lung bases with trace bilateral pleural effusions. Electronically Signed: Jose J Cool MD at 16:25 EDT ,
[2023-12-31 16:19] LABS: Anion Gap 8 (5-15); BUN 7 mg/dL (7-18); BUN/Creat Ratio 12.8 RATIO (10-20); Calcium,Total 7.2 mg/dL (8.5-10.1); Chloride 104 mmol/L (98-107); Creatinine, Serum 0.55 mg/dL (0.55-1.02); EST Glomerular Filtration Rate 117 mL/min (>60); Est Glom Filt Rate - Afr Amer 141 mL/min (>60); Estimated Creatinine Clearance 46.81 ml/min; Glucose 80 mg/dL (74-106); Potassium 3.5 mmol/L (3.5-5.1); Sodium Level 130 mmol/L (136-145); Troponin-I HS 48 pg/mL (3.0-54.0)
[2023-12-31 16:43] LABS: BNP,B-Type NATRIURETIC PEPTIDE 2146.1 pg/mL (0-100)
[2023-12-31 17:39] LABS: Troponin-I HS 64 pg/mL (3.0-54.0)
--- NOTE | 2023-12-31 18:01 | EKG12_ITS ---
Test Reason : REPEAT Blood Pressure : / mmHG Vent. Rate : 070 BPM Atrial Rate : 070 BPM P-R Int : 166 ms QRS Dur : 086 ms QT Int : 458 ms P-R-T Axes : -04 047 116 degrees QTc Int : 494 ms Normal sinus rhythm Moderate voltage criteria for LVH, may be normal variant ( Sokolow-Donaldson , Hua product ) ST & T wave abnormality, consider inferolateral ischemia Abnormal ECG Confirmed by JUDE MOY, RONY ([id number]), senior linux unix administrator JOHN ARREDONDO ([id number]) on 01/01/2024 1:22:59 PM Referred By: Confirmed By:RONY ROQUE MD
--- NOTE | 2023-12-31 18:04 | CT_ITS ---
EXAM: CT ANGIOGRAPHY CHEST, ABDOMEN AND PELVIS WITH INTRAVENOUS CONTRAST CLINICAL INDICATION: Concern for dissection TECHNIQUE: Helically acquired angiography images were obtained of the chest, abdomen and pelvis with intravenous contrast. This CT exam was performed using one or more of the following dose reduction techniques: automated exposure control, adjustment of the mA and/or kV according to patient size, and/or use of iterative reconstruction technique. MIP reconstructed images were created and reviewed. CONTRAST: IV 100mL [id number] COMPARISON: No relevant prior studies available. FINDINGS: VASCULATURE: AORTA: There are atherosclerotic calcifications seen within the aorta. There is no evidence of aneurysm or dissection. There are separate origins of the gastroduodenal and hepatic arteries from the aorta. PULMONARY ARTERIES: Unremarkable. Normal in caliber. No obvious central pulmonary embolism although this study was not performed with the pulmonary embolism protocol. GREAT VESSELS OF AORTIC ARCH: Unremarkable. Normal in caliber. No dissection. CELIAC TRUNK AND MESENTERIC ARTERIES: There is heavy calcification at the origin of the superior mesenteric artery. No occlusion or significant stenosis. No dissection. RENAL ARTERIES: No acute findings. No occlusion or significant stenosis. No dissection. ILIAC ARTERIES: No acute findings. No occlusion or significant stenosis. No dissection. CHEST: LUNGS AND PLEURAL SPACES: Small bilateral pleural effusions. There are emphysematous bulla in the lung bases. No mass. No pneumothorax. HEART: Unremarkable. Heart size is normal. No pericardial effusion. MEDIASTINUM: Unremarkable. No mediastinal or hilar adenopathy. Esophagus is unremarkable. No hiatal hernia. THYROID: Unremarkable. No thyroid lesions. ABDOMEN: LIVER: Unremarkable. Homogeneous. No focal mass. GALLBLADDER AND BILE DUCTS: Unremarkable. No calcified gallstones. No gallbladder distention or wall edema. No intra- or extrahepatic biliary ductal dilation. PANCREAS: Unremarkable. No focal cystic or solid mass. SPLEEN: Unremarkable. Normal size without focal cystic or solid mass. ADRENALS: Unremarkable. No nodules. KIDNEYS AND URETERS: The left kidney is smaller in size and right. There is a simple cyst in the right kidney. No follow-up imaging is necessary. Normal renal size and position. No hydronephrosis. STOMACH AND BOWEL: Unremarkable. No stomach or bowel distention. No focal inflammatory change. PELVIS: APPENDIX: No evidence of acute appendicitis. BLADDER: Unremarkable. REPRODUCTIVE: Unremarkable as visualized. No mass. CHEST, ABDOMEN and PELVIS: INTRAPERITONEAL SPACE: Unremarkable. No ascites or other fluid collection. No free air. BONES/JOINTS: Unremarkable. No suspicious lytic or blastic abnormality. SOFT TISSUES: Unremarkable. No discrete abdominal or pelvic wall hernia. LYMPH NODES: Unremarkable. No enlarged lymph nodes. CT/CTA Chst, Abd, Pel W and/or WO IMPRESSION: 1. Normal caliber aorta with no evidence of dissection or aneurysm. There are calcific plaque seen throughout the aorta extending into the iliac vessels. There is heavy calcification of the origin of the superior mesenteric artery. 2. Small bilateral pleural effusions with bibasilar emphysematous change. Electronically Signed: Jose J Cool MD at 19:10 EDT ,
[2023-12-31 18:36] LABS: Troponin-I HS 64 pg/mL (3.0-54.0)
[2023-12-31 18:43] LABS: D-Dimer Quantitative (DVT/PE) 2.26 FEU/ug/m (0.27-0.49)
[2023-12-31] MEDS: Furosemide 40 MG/4 ML Vial IV (20:18)
== END 2023-12-31 20:25 | disposition home or self-care (01) ==
PROVIDERS: Emergency Provider Surgery; PCP Nurse Practitioner; Visit Provider Surgery
DX: I50.32 Chronic diastolic (congestive) heart failure (principal); I11.0 Hypertensive heart disease with heart failure; I48.91 Unspecified atrial fibrillation; I70.0 Atherosclerosis of aorta; E78.5 Hyperlipidemia, unspecified; F17.210 Nicotine dependence, cigarettes, uncomplicated; D69.6 Thrombocytopenia, unspecified; Z79.899 Other long term (current) drug therapy; R06.02 Shortness of breath
CPT/HCPCS: 71046; 71275; 74174; 80048; 83880; 84484; 85025; 85379; 93005; 94640; 96374; 99284; Q9967; A4216; J1940

== ENCOUNTER → 2024-04-29 | Outpatient (CLI) | payer MEDICARE, SELFPAY ==
[2024-04-29 22:00] LABS: Absolute Lymphocyte Count 1.33 X10^3/uL (0.83-4.51); Absolute Neutrophil Count 3.9 X10^3/uL (2.0-7.7); Basophil# 0.05 X10^3/uL; Basophil% 0.8 % (0-1); Eosinophil# 0.04 X10^3/uL; Eosinophils% 0.7 % (0-5); Hematocrit 29.2 % (37-47); Hemoglobin 9.6 g/dL (12.0-15.0); Lymphocyte # 1.33 X10^3/ul (0.83-4.51); Lymphocyte % 21.8 % (19-41); Mean Corp Hgb Conc 32.9 g/dL (32-36); Mean Corpuscular Hgb 29.1 pg (27.0-32.0); Mean Corpuscular Volume 88.5 fL (81-99); Monocyte# 0.78 X10^3/uL; Monocyte% 12.8 % (0-10); NRBC Flagged by Analyzer 0 % (0-5); Neutrophil # 3.87 X10^3/uL (2.7-7.7); Neutrophil % 63.6 % (47-70); Platelet Count 287 K/mm3 (150-450); RBC Distribution Width SD 38.8 fl (35.1-43.9); White Blood Count 6.1 K/mm3 (4.4-11.0)
[2024-04-29 22:21] LABS: ALB/GLOB Ratio 0.7 RATIO (0.9-2.4); AST(SGOT) 10 U/L (15-37); Alanine Aminotransfer ALT/SGPT 10 U/L (13-56); Albumin, Serum 2.9 g/dL (3.2-5.0); Alkaline Phosphatase 87 U/L (45-117); Anion Gap 10 (5-15); BUN 20 mg/dL (7-18); BUN/Creat Ratio 14.3 RATIO (10-20); Calcium,Total 9.4 mg/dL (8.5-10.1); Chloride 100 mmol/L (98-107); EST Glomerular Filtration Rate 40 mL/min (>60); Est Glom Filt Rate - Afr Amer 48 mL/min (>60); Globulin 4.3 g/dL (2.2-4.2); Glucose 112 mg/dL (74-106); Potassium 2.9 mmol/L (3.5-5.1); Protein, Total 7.2 g/dL (6.4-8.2); Sodium Level 133 mmol/L (136-145)
== END | disposition home or self-care (01) ==
PROVIDERS: PCP Nurse Practitioner; Referring Provider Nurse Practitioner; Visit Provider Nurse Practitioner
DX: I48.0 Paroxysmal atrial fibrillation (principal); E78.2 Mixed hyperlipidemia; I10 Essential (primary) hypertension; E87.1 Hypo-osmolality and hyponatremia; E87.6 Hypokalemia
CPT/HCPCS: 80053; 84443; 85025